=== PATIENT | female | born 1955 | race Caucasian/White ===

== ENCOUNTER → 2016-12-31 | Outpatient (CLI) | payer OTHER ==
[~2016-12-31] MED LIST: ACET-1600 PO; ALBU8.5H5 INH; AMLO10TA4 PO; ASCO500T8 PO; BENA40TA55 PO; CALC-60 PO; CETI10TA24 PO; CHOL20002 PO; DOCU-30 PO; DOXE25CA PO; DOXE50CA PO; DULO30CA2 PO; FISH OIL OMEGA1 EACH PO; FLUO20TA25 PO; FURO20TA3 PO; GABA100C8 PO; GLUC500T8 PO; HYDR-3307 PO; MOME13HF3 INH; MOME220A2 INH; MOME220A9 INH; MONT10TA6 PO; NAPR220T77 PO; OXYC5CAP4 PO; PIOG15TA9 PO; PIOG30TA8 PO; RIVA10TA PO; ROSU10TA PO; ROSU5TAB PO; SALM50DI INH; SPIR25TA3 PO; SUVO10TA PO; TEMA15CA PO; TRAZ100T15 PO
[2016-12-31 13:35] LABS: ASPARTATE AMINO TRANSFERASE 17 U/L (15-37); BLOOD UREA NITROGEN 12 mg/dL (7-18)
== END | disposition home or self-care (01) ==
LOC: STAR 10:22
PROVIDERS: ATTEND Internal Medicine Gastroenterology
DX: Z01.818 Encounter for other preprocedural examination (principal); Z12.11 Encounter for screening for malignant neoplasm of colon
CPT/HCPCS: 36415; 80053; 93005

== ENCOUNTER 2017-01-14 05:59 | Day surgery (SDC) | payer OTHER ==
[~2017-01-14] VITALS: Ht 157.5 cm; Wt 143.0 kg
[~2017-01-14 05:59] MED LIST changes: +FUROSEMIDE 20 MG/2 ML ONE; +GABA-826 PO; -GABA100C8 PO
[2017-01-14] MEDS ORDERED: LACTATED RINGERS 1,000 ML IV SCH (06:55)
[2017-01-14 06:56] VITALS: BP 106/80
[2017-01-14] MEDS ORDERED: LIDOCAINE 1%, 2ML SQ PRN (07:00)
[2017-01-14] MEDS ORDERED: TRAM50TA2 PO (07:03)
[2017-01-14] MEDS ORDERED: FENTANYL PF 100 MCG/2ML IV PRN (08:30)
[2017-01-14] MEDS ORDERED: LABETALOL 5MG/ML, 20ML IV PRN (08:30)
[2017-01-14] MEDS ORDERED: ACETAMINOPHEN 325 MG TABLET PO PRN (08:30)
[2017-01-14] MEDS ORDERED: OXYcodone 5 MG/5 ML ORAL.SOL UDC PO PRN (08:30)
[2017-01-14] MEDS ORDERED: hydrALAzine 20 MG/ML, 1ML IV PRN (08:30)
[2017-01-14] MEDS ORDERED: HYDROcodone/APAP 7.5-325MG/15ML UDC PO PRN (08:30)
[2017-01-14] MEDS ORDERED: EPHEDRINE 50 MG/ML, 1ML IVPush PRN (08:30)
[2017-01-14] MEDS ORDERED: PROMETHAZINE 25 MG/ML, 1ML IV PRN (08:30)
[2017-01-14] MEDS ORDERED: KETOROLAC 30 MG/1 ML IV PRN (08:30)
[2017-01-14] MEDS ORDERED: ONDANSETRON 2MG/ML, 2ML IVPush PRN (08:30)
[2017-01-14] MEDS ORDERED: PROPOFOL 10 MG/ML, 20ML ONE (11:04)
== END 2017-01-14 10:15 | disposition home or self-care (01) ==
LOC: OUT 05:59
PROVIDERS: ATTEND Internal Medicine Gastroenterology
DX: Z12.11 Encounter for screening for malignant neoplasm of colon (principal); D12.4 Benign neoplasm of descending colon; K57.30 Diverticulosis of large intestine without perforation or abscess without bleeding; I10 Essential (primary) hypertension; J45.909 Unspecified asthma, uncomplicated; E11.9 Type 2 diabetes mellitus without complications; G47.33 Obstructive sleep apnea (adult) (pediatric); G43.909 Migraine, unspecified, not intractable, without status migrainosus; E66.01 Morbid (severe) obesity due to excess calories; Z68.43 Body mass index [BMI] 50.0-59.9, adult; Z88.6 Allergy status to analgesic agent; Z88.8 Allergy status to other drugs, medicaments and biological substances; Z91.048 Other nonmedicinal substance allergy status; Z86.010 Personal history of colon polyps; K58.9 Irritable bowel syndrome, unspecified; Z98.890 Other specified postprocedural states; Z96.651 Presence of right artificial knee joint; J98.4 Other disorders of lung; Z83.71 Family history of colonic polyps
CPT/HCPCS: 45385; 82962; 88305; J2704; J7120; J1940

== ENCOUNTER 2018-02-04 17:54 | Inpatient (IN) | payer OTHER ==
[~2018-02-04] VITALS: Ht 157.5 cm; Wt 155.6 kg
[~2018-02-04 17:54] MED LIST changes: +CHOL500045 PO; +DOCU-131 PO; -DOCU-30 PO; -FUROSEMIDE 20 MG/2 ML ONE; +GABA100C PO; +GLUC500T11 PO; -GLUC500T8 PO; +LIOT50TA2 PO; +MOME220A PO; +MULT-516 PO; +OXYC5CAP2 PO; -OXYC5CAP4 PO; +PIOG15TA22 PO; -PIOG15TA9 PO; +PIOG30TA23 PO; -PIOG30TA8 PO; +SALM50DI PO; +TIZA4TAB PO; +TRAM50TA2 PO
[2018-02-04] MEDS ORDERED: VANCOMYCIN PER PHARMACY MC PRN ×2 (19:30→21:30)
[2018-02-04] MEDS ORDERED: VANCOMYCIN 2,500 MG in SODIUM CHLORIDE 0.9% 500 ML IV ONE (19:30)
[2018-02-04] MEDS ORDERED: CEFTRIAXONE PMX 1GM/50ML 50 ML IV ONE (19:30)
[2018-02-04] MEDS ORDERED: CEFTRIAXONE PMX 1GM/50ML 50 ML ONE (19:39)
[2018-02-04 20:47] VITALS: BP 139/84
[2018-02-04] MEDS ORDERED: SODIUM CHLORIDE 0.9% 1,000 ML IV SCH (21:04)
[2018-02-04] MEDS ORDERED: ALBUTEROL SULFATE 2.5 MG/3 ML NPPB PRN (21:30)
[2018-02-04] MEDS ORDERED: POLYETHYLENE GLYCOL 17 GM PACKET PO PRN (21:30)
[2018-02-04] MEDS ORDERED: ONDANSETRON ODT 4 MG PO PRN (21:30)
[2018-02-04] MEDS ORDERED: morphine SULFATE 10 MG/ML, 1ML IVPush PRN (21:30)
[2018-02-04] MEDS ORDERED: LABETALOL 5MG/ML, 20ML IVPush PRN (21:30)
[2018-02-04] MEDS ORDERED: ONDANSETRON 2MG/ML, 2ML IVPush PRN (21:30)
[2018-02-04] MEDS ORDERED: PROMETHAZINE 25 MG/ML, 1ML IM PRN (21:30)
[2018-02-04] MEDS ORDERED: MOMETASONE FUROATE INH SCH ×2 (21:30→23:18)
[2018-02-04] MEDS ORDERED: BISACODYL 10 MG SUPP PR PRN (21:30)
[2018-02-04] MEDS ORDERED: OXYcodone IR 5MG TABLET PO PRN (21:30)
[2018-02-04] MEDS ORDERED: ACETAMINOPHEN 325 MG TABLET PO PRN (21:30)
[2018-02-04] MEDS ORDERED: DOCUSATE 100 MG CAPSULE PO PRN (21:30)
[2018-02-04 21:44] LABS: HEMOGLOBIN A1C 6.2 % (4.2-6.3)
[2018-02-04 21:45] LABS: FREE T4 (FREE THYROXINE) 0.46 ng/dL (0.76-1.46); THYROID STIMULATING HORMONE 0.763 mIU/L (0.358-3.740)
[2018-02-04 21:46] LABS: HCT (SEDRATE) 40.6 % (34.6-47.8)
[2018-02-04] MEDS ORDERED: PHARMACOKINETIC MONITORING MC PRN (22:00)
[2018-02-04] MEDS ORDERED: PHARMACOKINETIC CONSULTATION MC ONE (22:00)
[2018-02-04] MEDS: PIPERACILLIN/TAZO/PMX 3.375GM 50 ML IV SCH (22:30)
[2018-02-04] MEDS: HYDROcodone/APAP 5/325 TABLET PO PRN ×2 (22:31→23:33)
[2018-02-04] MEDS: MONTELUKAST 10 MG TABLET PO SCH (22:31)
[2018-02-04] MEDS: ATORVASTATIN 10 MG TABLET PO SCH (22:31)
[2018-02-04] MEDS: GABAPENTIN 100 MG CAPSULE PO SCH (22:31)
[2018-02-04] MEDS: HEPARIN 5,000 UNITS/ML, 1ML SQ SCH (22:32)
[2018-02-04] MEDS: SALMETEROL XINAFOATE 50 MCG INH SCH (23:32)
[2018-02-04] MEDS: VANCOMYCIN 2,500 MG in SODIUM CHLORIDE 0.9% 500 ML IV SCH (23:33)
[2018-02-05 01:30] VITALS: BP 144/79
[2018-02-05] MEDS: HYDROcodone/APAP 5/325 TABLET PO PRN ×5 (03:53→20:30)
[2018-02-05] MEDS: PIPERACILLIN/TAZO/PMX 3.375GM 50 ML IV SCH ×3 (03:54→17:57)
[2018-02-05 05:15] LABS: ALBUMIN 2.3 g/dL (3.4-5.0); ANION GAP 8 mmol/L (5-15); CALCIUM 9.6 mg/dL (8.5-10.1); CHLORIDE 107 mmol/L (98-107)
[2018-02-05 05:18] LABS: ALANINE AMINOTRANSFERASE 36 U/L (12-78); ALKALINE PHOSPHATASE 153 U/L (45-117); CHOL/HDL RATIO 2.3; CHOLESTEROL, TOTAL 110 mg/dL (140-239); CREATININE 0.77 mg/dL (0.55-1.02); HDL CHOL % 44 % (28-40); HDL CHOLESTEROL (DIRECT) 48 mg/dL (40-60); LDL CHOLESTEROL,CALCULATED 48 mg/dL (54-169); TOTAL PROTEIN 5.8 g/dL (6.4-8.2); TRIGLYCERIDES 72 mg/dL (50-200); VLDL CHOLESTEROL 14 mg/dL (0-25)
[2018-02-05 05:24] LABS: BASOPHILS # (AUTO) 0.02 x10^3/uL (0-0.1); BASOPHILS % (AUTO) 0 % (0-1); EOSINOPHILS % (AUTO) 0 % (1-7); LYMPHOCYTES # (AUTO) 1.71 x10^3/uL (1-3.4); LYMPHOCYTES % (AUTO) 18 % (22-44); MD NO; MEAN CORPUSCULAR HEMOGLOBIN 29.2 pg (27.0-34.8); MEAN CORPUSCULAR HGB CONC 33.2 g/dL (32.4-35.8); MEAN CORPUSCULAR VOLUME 88.1 fL (80-100); MEAN PLATELET VOLUME 7.3 fL (7.4-10.4); MONOCYTES % (AUTO) 13 % (2-9); NEUTROPHILS # (AUTO) 6.54 x10^3/uL (1.8-6.8); NEUTROPHILS % (AUTO) 69 % (42-75); PLATELET COUNT 305 x10^3/uL (130-400); RED BLOOD COUNT 4.15 x10^6/uL (3.82-5.3); RED CELL DISTRIBUTION WIDTH 13.5 % (9.6-15.2)
[2018-02-05] MEDS: HEPARIN 5,000 UNITS/ML, 1ML SQ SCH ×3 (06:33→22:56)
[2018-02-05 06:45] VITALS: BP 135/88
[2018-02-05] MEDS: INSULIN LISPRO 100 UNITS/ML, PEN SQ-INSULIN SCH ×4 (07:00→21:00)
[2018-02-05] MEDS: ASCORBIC ACID 500 MG TABLET PO SCH ×2 (08:31→08:33)
[2018-02-05] MEDS: OMEGA-3/FISH OIL CAPSULE PO SCH (08:31)
[2018-02-05] MEDS: AMLODIPINE 5 MG TABLET PO SCH (08:33)
[2018-02-05] MEDS: MULTIVITAMIN 1 TABLET PO SCH (08:33)
[2018-02-05] MEDS: LIOTHYRONINE 25 MCG TABLET PO SCH (08:33)
[2018-02-05] MEDS: CHOLECALCIFEROL 1,000 UNIT TABLET PO SCH (08:34)
[2018-02-05] MEDS: SALMETEROL XINAFOATE 50 MCG INH SCH ×2 (08:34→20:32)
[2018-02-05] MEDS: BENAZEPRIL 20 MG TABLET PO SCH (08:34)
[2018-02-05 13:10] VITALS: BP 115/70
[2018-02-05] MEDS: VANCOMYCIN 2,500 MG in SODIUM CHLORIDE 0.9% 500 ML IV SCH (16:25)
[2018-02-05 18:37] VITALS: BP 132/80
[2018-02-05] MEDS: ATORVASTATIN 10 MG TABLET PO SCH (20:29)
[2018-02-05] MEDS: MONTELUKAST 10 MG TABLET PO SCH (20:31)
[2018-02-05] MEDS: MOMETASONE FUROATE INH SCH (20:33)
[2018-02-05] MEDS: GABAPENTIN 100 MG CAPSULE PO SCH (22:34)
[2018-02-05] MEDS: CETIRIZINE 10 MG TABLET PO SCH (22:34)
[2018-02-06 00:14] VITALS: BP 134/83
[2018-02-06] MEDS: TIZANIDINE 4MG TABLET PO SCH (00:34)
[2018-02-06] MEDS: HYDROcodone/APAP 5/325 TABLET PO PRN ×3 (00:34→08:50)
[2018-02-06] MEDS: PIPERACILLIN/TAZO/PMX 3.375GM 50 ML IV SCH ×5 (00:34→22:08)
[2018-02-06 05:03] LABS: BASOPHILS # (AUTO) 0.01 x10^3/uL (0-0.1); BASOPHILS % (AUTO) 0 % (0-1); EOSINOPHILS # (AUTO) 0.02 x10^3/uL (0-0.4); EOSINOPHILS % (AUTO) 0 % (1-7); LYMPHOCYTES # (AUTO) 1.75 x10^3/uL (1-3.4); LYMPHOCYTES % (AUTO) 19 % (22-44); MD NO; MEAN CORPUSCULAR HEMOGLOBIN 29.4 pg (27.0-34.8); MEAN CORPUSCULAR HGB CONC 33.2 g/dL (32.4-35.8); MEAN CORPUSCULAR VOLUME 88.5 fL (80-100); MEAN PLATELET VOLUME 7.3 fL (7.4-10.4); MONOCYTES # (AUTO) 0.87 x10^3/uL (0.2-0.8); MONOCYTES % (AUTO) 9 % (2-9); NEUTROPHILS # (AUTO) 6.65 x10^3/uL (1.8-6.8); NEUTROPHILS % (AUTO) 72 % (42-75); PLATELET COUNT 295 x10^3/uL (130-400); RED BLOOD COUNT 3.92 x10^6/uL (3.82-5.3); RED CELL DISTRIBUTION WIDTH 13.6 % (9.6-15.2)
[2018-02-06 05:09] LABS: ALBUMIN 2.1 g/dL (3.4-5.0); ANION GAP 4 mmol/L (5-15); CALCIUM 9.5 mg/dL (8.5-10.1); CHLORIDE 109 mmol/L (98-107)
[2018-02-06 05:12] LABS: ALANINE AMINOTRANSFERASE 53 U/L (12-78); ALKALINE PHOSPHATASE 161 U/L (45-117); BILIRUBIN,TOTAL 0.7 mg/dL (0.2-1.0); CREATININE 0.98 mg/dL (0.55-1.02); TOTAL PROTEIN 5.6 g/dL (6.4-8.2)
[2018-02-06] MEDS: HEPARIN 5,000 UNITS/ML, 1ML SQ SCH ×2 (06:22→12:03)
[2018-02-06] MEDS: INSULIN LISPRO 100 UNITS/ML, PEN SQ-INSULIN SCH ×4 (07:00→21:00)
[2018-02-06 08:47] VITALS: BP 109/67
[2018-02-06] MEDS: MULTIVITAMIN 1 TABLET PO SCH (08:49)
[2018-02-06] MEDS: BENAZEPRIL 20 MG TABLET PO SCH (08:49)
[2018-02-06] MEDS: CHOLECALCIFEROL 1,000 UNIT TABLET PO SCH (08:49)
[2018-02-06] MEDS: OMEGA-3/FISH OIL CAPSULE PO SCH (08:50)
[2018-02-06] MEDS: ASCORBIC ACID 500 MG TABLET PO SCH ×2 (08:50)
[2018-02-06] MEDS: AMLODIPINE 5 MG TABLET PO SCH (08:50)
[2018-02-06] MEDS: SALMETEROL XINAFOATE 50 MCG INH SCH ×2 (08:51→21:00)
[2018-02-06] MEDS: LIOTHYRONINE 25 MCG TABLET PO SCH (08:52)
[2018-02-06] MEDS: VANCOMYCIN 2,500 MG in SODIUM CHLORIDE 0.9% 500 ML IV SCH (10:32)
[2018-02-06 12:54] VITALS: BP 142/83
[2018-02-06] MEDS ORDERED: VANCOMYCIN 1,000 MG ONE (15:45)
[2018-02-06] MEDS ORDERED: TRANEXAMIC ACID 100 MG/ML, 10ML ONE ×3 (16:10)
[2018-02-06] MEDS ORDERED: SODIUM CHLORIDE 0.9% 100 ML ONE (16:10)
[2018-02-06] MEDS ORDERED: KETOROLAC 60 MG/2 ML ONE (16:10)
[2018-02-06] MEDS ORDERED: ROPIvacaine/PF 0.2%, 20 ML ONE (16:10)
[2018-02-06] MEDS ORDERED: PHENYLEPHRINE 10 MG/ML ONE (16:19)
[2018-02-06] MEDS ORDERED: CEFAZOLIN 1,000 MG ONE (16:19)
[2018-02-06] MEDS ORDERED: KETOROLAC 30 MG/1 ML ONE (16:19)
[2018-02-06] MEDS ORDERED: DEXAMETHASONE 4 MG/ML, 1ML ONE (16:19)
[2018-02-06] MEDS ORDERED: GLYCOPYRROLATE 0.2MG/1ML, 5ML ONE (16:19)
[2018-02-06] MEDS ORDERED: PROPOFOL 10 MG/ML, 20ML ONE (16:19)
[2018-02-06] MEDS ORDERED: METOPROLOL 1 MG/ML, 5ML ONE (16:19)
[2018-02-06] MEDS ORDERED: ONDANSETRON 2MG/ML, 2ML ONE (16:19)
[2018-02-06] MEDS ORDERED: NEOSTIGMINE 1 MG/ML, 10ML ONE (16:19)
[2018-02-06] MEDS ORDERED: ROCURONIUM 10 MG/ML,10ML ONE (16:19)
[2018-02-06] MEDS ORDERED: HALOPERIDOL 5 MG/ML IV PRN (17:00)
[2018-02-06] MEDS ORDERED: PROMETHAZINE 12.5 MG SUPP PR PRN ×2 (17:00→20:00)
[2018-02-06] MEDS ORDERED: ENALAPRILAT 1.25 MG/ML, 2ML IV ONE (17:00)
[2018-02-06] MEDS ORDERED: OXYcodone 5 MG/5 ML ORAL.SOL UDC PO PRN (17:00)
[2018-02-06] MEDS ORDERED: MEPERIDINE/PF 25MG/0.5ML IVPush PRN (17:00)
[2018-02-06] MEDS ORDERED: ONDANSETRON 2MG/ML, 2ML IV PRN ×2 (17:00→20:00)
[2018-02-06] MEDS ORDERED: LORazepam 2 MG/ML, 1ML IVPush PRN (17:00)
[2018-02-06] MEDS ORDERED: ALBUTEROL SULFATE 2.5 MG/3 ML NPPB PRN (17:00)
[2018-02-06] MEDS ORDERED: ACETAMINOPHEN 325 MG TABLET PO PRN (17:00)
[2018-02-06] MEDS ORDERED: FENTANYL PF 100 MCG/2ML ONE (19:56)
[2018-02-06] MEDS ORDERED: OXYcodone 5 MG/5 ML ORAL.SOL UDC ONE (19:56)
[2018-02-06] MEDS ORDERED: HYDROmorphone 1 MG/ML, 1ML IV PRN (20:00)
[2018-02-06] MEDS ORDERED: DIAZEPAM 5 MG TABLET PO PRN (20:00)
[2018-02-06] MEDS ORDERED: ONDANSETRON 4 MG TABLET PO PRN (20:00)
[2018-02-06] MEDS: HYDROcodone/APAP 10/325 MG TABLET PO SCH (20:00)
[2018-02-06] MEDS ORDERED: PROMETHAZINE 25 MG/ML, 1ML IM PRN (20:00)
[2018-02-06] MEDS ORDERED: BISACODYL 10 MG SUPP PR PRN (20:00)
[2018-02-06] MEDS ORDERED: ALUMINUM/MAG/SIMETHICONE 30 ML UDC PO PRN (20:00)
[2018-02-06] MEDS ORDERED: SENNA/DOCUSATE TABLET PO PRN (20:00)
[2018-02-06] MEDS ORDERED: DIPHENHYDRAMINE 50 MG CAPSULE PO PRN (20:00)
[2018-02-06] MEDS ORDERED: MAGNESIUM HYDROXIDE 8%, 30ML UDC PO PRN (20:00)
[2018-02-06] MEDS ORDERED: ACETAMINOPHEN 650 MG/20.3 ML UDC PO PRN (20:00)
[2018-02-06] MEDS: FENTANYL PF 100 MCG/2ML IV PRN ×2 (20:02→20:10)
[2018-02-06] MEDS ORDERED: TRANEXAMIC ACID 2,000 MG in SODIUM CHLORIDE 0.9% 100 ML IVPB ONE (20:15)
[2018-02-06] MEDS: HYDROmorphone 1 MG/ML, 1ML IV PRN ×4 (20:20→21:03)
[2018-02-06] MEDS ORDERED: MORPHINE SULFATE 4 MG/ML, 1ML IVPush PRN (20:30)
[2018-02-06] MEDS: MONTELUKAST 10 MG TABLET PO SCH (21:00)
[2018-02-06] MEDS: DOCUSATE 100 MG CAPSULE PO SCH (21:00)
[2018-02-06] MEDS: CETIRIZINE 10 MG TABLET PO SCH (21:00)
[2018-02-06] MEDS: ATORVASTATIN 10 MG TABLET PO SCH (21:00)
[2018-02-06] MEDS: INSULIN REGULAR 100 UNITS/ML, 3ML VIAL SQ-INSULIN SCH (21:00)
[2018-02-06] MEDS: MOMETASONE FUROATE INH SCH (21:00)
[2018-02-06 22:00] VITALS: BP 124/69
[2018-02-06] MEDS ORDERED: VANCOMYCIN PMX 1GM/200ML 200 ML IVPB SCH (23:00)
[2018-02-07] MEDS: GABAPENTIN 100 MG CAPSULE PO SCH ×2 (00:05→21:00)
[2018-02-07] MEDS: TIZANIDINE 4MG TABLET PO SCH ×2 (00:05→21:10)
[2018-02-07 00:13] VITALS: BP 116/73
[2018-02-07] MEDS: HYDROcodone/APAP 5/325 TABLET PO PRN (00:52)
[2018-02-07] MEDS: CEFAZOLIN PMX 2GM/50ML 50 ML IVPB SCH ×3 (00:52→17:51)
[2018-02-07] MEDS: SODIUM CHLORIDE 0.9% 1,000 ML IV SCH ×3 (03:00→21:34)
[2018-02-07 03:50] VITALS: BP 123/59
[2018-02-07] MEDS: VANCOMYCIN 2,500 MG in SODIUM CHLORIDE 0.9% 500 ML IV SCH (04:06)
[2018-02-07] MEDS: RIVAROXABAN 10 MG TABLET PO SCH ×2 (04:36→08:49)
[2018-02-07] MEDS: HYDROcodone/APAP 10/325 MG TABLET PO SCH ×4 (05:16→12:42)
[2018-02-07] MEDS ORDERED: DEXAMETHASONE 4 MG/ML, 1ML IVPush SCH (06:00)
[2018-02-07] MEDS: PIPERACILLIN/TAZO/PMX 3.375GM 50 ML IV SCH ×2 (06:25→08:45)
[2018-02-07] MEDS: INSULIN LISPRO 100 UNITS/ML, PEN SQ-INSULIN SCH ×4 (07:00→21:33)
[2018-02-07] MEDS: INSULIN REGULAR 100 UNITS/ML, 3ML VIAL SQ-INSULIN SCH ×2 (07:00→11:00)
[2018-02-07 08:21] VITALS: BP 96/51
[2018-02-07] MEDS: CHOLECALCIFEROL 1,000 UNIT TABLET PO SCH (08:49)
[2018-02-07] MEDS: OMEGA-3/FISH OIL CAPSULE PO SCH ×2 (08:49→21:11)
[2018-02-07] MEDS: LIOTHYRONINE 25 MCG TABLET PO SCH (08:50)
[2018-02-07] MEDS: MULTIVITAMIN 1 TABLET PO SCH (08:50)
[2018-02-07] MEDS: MULTIVITAMINS/MINERALS TABLET PO SCH (08:50)
[2018-02-07] MEDS: DOCUSATE 100 MG CAPSULE PO SCH ×2 (08:51→21:10)
[2018-02-07] MEDS: BENAZEPRIL 20 MG TABLET PO SCH (08:52)
[2018-02-07] MEDS: ASCORBIC ACID 500 MG TABLET PO SCH ×2 (08:52→09:00)
[2018-02-07] MEDS: AMLODIPINE 5 MG TABLET PO SCH (08:52)
[2018-02-07] MEDS: HEPARIN 5,000 UNITS/ML, 1ML SQ SCH (09:00)
[2018-02-07] MEDS: SALMETEROL XINAFOATE 50 MCG INH SCH ×2 (09:11→21:00)
[2018-02-07 10:50] LABS: HCT (SEDRATE) 31.7 % (34.6-47.8)
[2018-02-07 12:35] VITALS: BP 100/53
[2018-02-07] MEDS ORDERED: LIDOCAINE-MPF 1%, 2ML ONE (13:40)
[2018-02-07] MEDS: HYDROcodone/APAP 10/325 MG TABLET PO PRN ×2 (17:24→21:09)
[2018-02-07 20:04] VITALS: BP 112/71
[2018-02-07] MEDS: MOMETASONE FUROATE INH SCH (21:00)
[2018-02-07] MEDS: KETOROLAC 30 MG/1 ML IV SCH (21:10)
[2018-02-07] MEDS: ATORVASTATIN 10 MG TABLET PO SCH (21:11)
[2018-02-07] MEDS: CETIRIZINE 10 MG TABLET PO SCH (21:11)
[2018-02-07] MEDS: MONTELUKAST 10 MG TABLET PO SCH (21:13)
[2018-02-08] MEDS: CEFAZOLIN PMX 2GM/50ML 50 ML IVPB SCH ×3 (01:52→16:44)
[2018-02-08 03:09] VITALS: BP 101/66
[2018-02-08] MEDS: SODIUM CHLORIDE 0.9% 1,000 ML IV SCH ×3 (04:35→22:34)
[2018-02-08] MEDS: KETOROLAC 30 MG/1 ML IV SCH ×2 (04:46→12:00)
[2018-02-08] MEDS: HYDROcodone/APAP 10/325 MG TABLET PO PRN ×5 (04:46→22:33)
[2018-02-08 05:49] LABS: BASOPHILS # (AUTO) 0.04 x10^3/uL (0-0.1); BASOPHILS % (AUTO) 0 % (0-1); EOSINOPHILS % (AUTO) 0 % (1-7); LYMPHOCYTES # (AUTO) 1.91 x10^3/uL (1-3.4); LYMPHOCYTES % (AUTO) 14 % (22-44); MD NO; MEAN CORPUSCULAR HEMOGLOBIN 29.1 pg (27.0-34.8); MEAN CORPUSCULAR HGB CONC 33.4 g/dL (32.4-35.8); MEAN CORPUSCULAR VOLUME 87.1 fL (80-100); MONOCYTES # (AUTO) 1.04 x10^3/uL (0.2-0.8); MONOCYTES % (AUTO) 7 % (2-9); NEUTROPHILS # (AUTO) 10.98 x10^3/uL (1.8-6.8); NEUTROPHILS % (AUTO) 79 % (42-75); PLATELET COUNT 356 x10^3/uL (130-400); RED BLOOD COUNT 3.07 x10^6/uL (3.82-5.3); RED CELL DISTRIBUTION WIDTH 13.4 % (9.6-15.2)
[2018-02-08 05:57] LABS: ALANINE AMINOTRANSFERASE 17 U/L (12-78); ALBUMIN 1.9 g/dL (3.4-5.0); ANION GAP 6 mmol/L (5-15); CALCIUM 9.7 mg/dL (8.5-10.1); CHLORIDE 106 mmol/L (98-107)
[2018-02-08 05:59] LABS: ALKALINE PHOSPHATASE 119 U/L (45-117); BILIRUBIN,TOTAL 0.2 mg/dL (0.2-1.0); TOTAL PROTEIN 5.1 g/dL (6.4-8.2)
[2018-02-08] MEDS: INSULIN LISPRO 100 UNITS/ML, PEN SQ-INSULIN SCH ×4 (07:00→22:00)
[2018-02-08 07:54] VITALS: BP 99/65
[2018-02-08] MEDS: AMLODIPINE 5 MG TABLET PO SCH (09:00)
[2018-02-08] MEDS: BENAZEPRIL 20 MG TABLET PO SCH (09:00)
[2018-02-08] MEDS: DOCUSATE 100 MG CAPSULE PO SCH ×2 (10:02→22:20)
[2018-02-08] MEDS: CHOLECALCIFEROL 1,000 UNIT TABLET PO SCH (10:02)
[2018-02-08] MEDS: ASCORBIC ACID 500 MG TABLET PO SCH (10:03)
[2018-02-08] MEDS: OMEGA-3/FISH OIL CAPSULE PO SCH ×2 (10:03→22:21)
[2018-02-08] MEDS: RIVAROXABAN 10 MG TABLET PO SCH (10:03)
[2018-02-08] MEDS: LIOTHYRONINE 25 MCG TABLET PO SCH (10:03)
[2018-02-08] MEDS: MULTIVITAMINS/MINERALS TABLET PO SCH (10:04)
[2018-02-08] MEDS: SALMETEROL XINAFOATE 50 MCG INH SCH ×2 (10:04→22:19)
[2018-02-08 13:05] VITALS: BP 109/64
[2018-02-08 19:33] VITALS: BP 112/73
[2018-02-08] MEDS: MOMETASONE FUROATE INH SCH (22:18)
[2018-02-08] MEDS: GABAPENTIN 100 MG CAPSULE PO SCH (22:20)
[2018-02-08] MEDS: ATORVASTATIN 10 MG TABLET PO SCH (22:21)
[2018-02-08] MEDS: CETIRIZINE 10 MG TABLET PO SCH (22:21)
[2018-02-08] MEDS: MONTELUKAST 10 MG TABLET PO SCH (22:21)
[2018-02-09] MEDS: TIZANIDINE 4MG TABLET PO SCH (00:55)
[2018-02-09] MEDS: CEFAZOLIN PMX 2GM/50ML 50 ML IVPB SCH ×3 (00:55→16:06)
[2018-02-09 02:50] VITALS: BP 117/64
[2018-02-09] MEDS: HYDROcodone/APAP 10/325 MG TABLET PO PRN ×4 (02:54→20:41)
[2018-02-09] MEDS: SODIUM CHLORIDE 0.9% 1,000 ML IV SCH ×3 (05:45→22:00)
[2018-02-09 06:09] LABS: BASOPHILS # (AUTO) 0.15 x10^3/uL (0-0.1); BASOPHILS % (AUTO) 1 % (0-1); EOSINOPHILS # (AUTO) 0.21 x10^3/uL (0-0.4); EOSINOPHILS % (AUTO) 2 % (1-7); LYMPHOCYTES # (AUTO) 2.96 x10^3/uL (1-3.4); LYMPHOCYTES % (AUTO) 24 % (22-44); MD NO; MEAN CORPUSCULAR HEMOGLOBIN 29.5 pg (27.0-34.8); MEAN CORPUSCULAR HGB CONC 33.7 g/dL (32.4-35.8); MEAN CORPUSCULAR VOLUME 87.5 fL (80-100); MEAN PLATELET VOLUME 6.7 fL (7.4-10.4); MONOCYTES # (AUTO) 1.27 x10^3/uL (0.2-0.8); MONOCYTES % (AUTO) 10 % (2-9); NEUTROPHILS % (AUTO) 64 % (42-75); PLATELET COUNT 423 x10^3/uL (130-400); RED BLOOD COUNT 3.35 x10^6/uL (3.82-5.3); RED CELL DISTRIBUTION WIDTH 13.5 % (9.6-15.2)
[2018-02-09 06:21] LABS: ANION GAP 6 mmol/L (5-15); CALCIUM 9.9 mg/dL (8.5-10.1); CHLORIDE 109 mmol/L (98-107); CREATININE 1.84 mg/dL (0.55-1.02)
[2018-02-09 06:22] LABS: ALANINE AMINOTRANSFERASE 8 U/L (12-78); ALBUMIN 2.1 g/dL (3.4-5.0)
[2018-02-09 06:23] LABS: ALKALINE PHOSPHATASE 122 U/L (45-117); BILIRUBIN,TOTAL 0.3 mg/dL (0.2-1.0); TOTAL PROTEIN 5.6 g/dL (6.4-8.2)
[2018-02-09] MEDS: INSULIN LISPRO 100 UNITS/ML, PEN SQ-INSULIN SCH ×4 (07:00→20:25)
[2018-02-09 07:15] VITALS: BP 139/75
[2018-02-09] MEDS: SALMETEROL XINAFOATE 50 MCG INH SCH ×2 (08:47→20:40)
[2018-02-09] MEDS: MULTIVITAMINS/MINERALS TABLET PO SCH (08:48)
[2018-02-09] MEDS: BENAZEPRIL 20 MG TABLET PO SCH (08:48)
[2018-02-09] MEDS: RIVAROXABAN 10 MG TABLET PO SCH (08:49)
[2018-02-09] MEDS: DOCUSATE 100 MG CAPSULE PO SCH ×3 (08:49→20:41)
[2018-02-09] MEDS: ASCORBIC ACID 500 MG TABLET PO SCH (08:49)
[2018-02-09] MEDS: AMLODIPINE 5 MG TABLET PO SCH (08:49)
[2018-02-09] MEDS: CHOLECALCIFEROL 1,000 UNIT TABLET PO SCH (08:49)
[2018-02-09] MEDS: LIOTHYRONINE 25 MCG TABLET PO SCH (08:50)
[2018-02-09] MEDS: OMEGA-3/FISH OIL CAPSULE PO SCH ×2 (08:55→23:10)
[2018-02-09] MEDS: OXYcodone IR 5MG TABLET PO PRN ×2 (09:49→16:06)
[2018-02-09 12:11] VITALS: BP 144/65
[2018-02-09 19:51] VITALS: BP 156/80
[2018-02-09] MEDS: MOMETASONE FUROATE INH SCH (20:39)
[2018-02-09] MEDS: GABAPENTIN 100 MG CAPSULE PO SCH (20:41)
[2018-02-09] MEDS: ATORVASTATIN 10 MG TABLET PO SCH (20:41)
[2018-02-09] MEDS: MONTELUKAST 10 MG TABLET PO SCH (20:41)
[2018-02-09] MEDS: CETIRIZINE 10 MG TABLET PO SCH (23:10)
[2018-02-10] MEDS: SODIUM CHLORIDE 0.9% 1,000 ML IV SCH ×3 (00:45→14:00)
[2018-02-10] MEDS: TIZANIDINE 4MG TABLET PO SCH (00:45)
[2018-02-10] MEDS: HYDROcodone/APAP 10/325 MG TABLET PO PRN ×4 (00:46→17:11)
[2018-02-10] MEDS: CEFAZOLIN PMX 2GM/50ML 50 ML IVPB SCH ×3 (00:46→15:42)
[2018-02-10 01:05] VITALS: BP 131/79
[2018-02-10 05:01] LABS: BASOPHILS # (AUTO) 0.07 x10^3/uL (0-0.1); BASOPHILS % (AUTO) 1 % (0-1); EOSINOPHILS # (AUTO) 0.29 x10^3/uL (0-0.4); EOSINOPHILS % (AUTO) 3 % (1-7); LYMPHOCYTES # (AUTO) 2.57 x10^3/uL (1-3.4); LYMPHOCYTES % (AUTO) 26 % (22-44); MD NO; MEAN CORPUSCULAR HEMOGLOBIN 29.5 pg (27.0-34.8); MEAN CORPUSCULAR HGB CONC 33.2 g/dL (32.4-35.8); MEAN CORPUSCULAR VOLUME 88.8 fL (80-100); MEAN PLATELET VOLUME 6.6 fL (7.4-10.4); MONOCYTES % (AUTO) 7 % (2-9); NEUTROPHILS # (AUTO) 6.41 x10^3/uL (1.8-6.8); NEUTROPHILS % (AUTO) 64 % (42-75); PLATELET COUNT 361 x10^3/uL (130-400); RED BLOOD COUNT 2.99 x10^6/uL (3.82-5.3); RED CELL DISTRIBUTION WIDTH 13.3 % (9.6-15.2)
[2018-02-10 05:07] LABS: ALANINE AMINOTRANSFERASE 7 U/L (12-78); ALBUMIN 1.9 g/dL (3.4-5.0); ANION GAP 6 mmol/L (5-15); CALCIUM 9.5 mg/dL (8.5-10.1); CHLORIDE 113 mmol/L (98-107); CREATININE 1.63 mg/dL (0.55-1.02)
[2018-02-10 05:10] LABS: ALKALINE PHOSPHATASE 113 U/L (45-117); BILIRUBIN,TOTAL 0.3 mg/dL (0.2-1.0); TOTAL PROTEIN 4.9 g/dL (6.4-8.2)
[2018-02-10] MEDS: INSULIN LISPRO 100 UNITS/ML, PEN SQ-INSULIN SCH ×3 (07:00→15:51)
[2018-02-10 08:00] VITALS: BP 147/81
[2018-02-10] MEDS: CHOLECALCIFEROL 1,000 UNIT TABLET PO SCH (08:01)
[2018-02-10] MEDS: BENAZEPRIL 20 MG TABLET PO SCH (08:03)
[2018-02-10] MEDS: AMLODIPINE 5 MG TABLET PO SCH (08:03)
[2018-02-10] MEDS: ASCORBIC ACID 500 MG TABLET PO SCH (08:04)
[2018-02-10] MEDS: OMEGA-3/FISH OIL CAPSULE PO SCH (08:04)
[2018-02-10] MEDS: LIOTHYRONINE 25 MCG TABLET PO SCH (08:04)
[2018-02-10] MEDS: MULTIVITAMINS/MINERALS TABLET PO SCH (08:04)
[2018-02-10] MEDS: RIVAROXABAN 10 MG TABLET PO SCH (08:04)
[2018-02-10] MEDS: DOCUSATE 100 MG CAPSULE PO SCH (08:04)
[2018-02-10] MEDS: SALMETEROL XINAFOATE 50 MCG INH SCH (08:05)
[2018-02-10] MEDS: HYDROcodone/APAP 5/325 TABLET PO PRN (09:33)
[2018-02-10] MEDS ORDERED: MULT-484 PO (10:45)
[2018-02-10] MEDS ORDERED: CEFA2FRO IV (10:45)
[2018-02-10] MEDS ORDERED: ACET650S21 PO (10:45)
[2018-02-10] MEDS ORDERED: DOCU-131 PO (10:45)
[2018-02-10] MEDS ORDERED: RIVA10TA PO ×2 (10:45→11:05)
[2018-02-10] MEDS ORDERED: OXYC5TAB3 PO (10:45)
[2018-02-10] MEDS ORDERED: ONDA4VIA4 IV (10:45)
[2018-02-10] MEDS ORDERED: MAGN400O7 PO (10:45)
[2018-02-10] MEDS ORDERED: MORP10VI10 IVPush (10:45)
[2018-02-10] MEDS ORDERED: SENN1TAB7 PO (10:45)
[2018-02-10] MEDS ORDERED: POLY17PO5 PO (10:45)
[2018-02-10] MEDS ORDERED: ONDA4TAB12 PO (10:45)
[2018-02-10] MEDS ORDERED: ALPR0.254 PO (10:45)
[2018-02-10] MEDS ORDERED: OMEG1CAP6 PO (10:45)
[2018-02-10] MEDS ORDERED: BISA10SU65 PR (10:45)
[2018-02-10 14:30] VITALS: BP 144/74
== END 2018-02-10 17:10 | DRG 463 ==
LOC: ED 19:46 → EDIP 19:54 → 4NOR 20:40
PROVIDERS: ADMIT Internal Medicine; ATTEND Internal Medicine
PROC: 5A09357 Assistance with Respiratory Ventilation, Less than 24 Consecutive Hours, Continuous Positive Airway Pressure (ICD-10-PCS; 2018-02-05)
PROC: 0SHC08Z Insertion of Spacer into Right Knee Joint, Open Approach (ICD-10-PCS; 2018-02-06)
PROC: 0SPC0JZ Removal of Synthetic Substitute from Right Knee Joint, Open Approach (ICD-10-PCS; principal; 2018-02-06 16:00)
PROC: 02HV33Z Insertion of Infusion Device into Superior Vena Cava, Percutaneous Approach (ICD-10-PCS; 2018-02-07)
PROC: B548ZZA Ultrasonography of Superior Vena Cava, Guidance (ICD-10-PCS; 2018-02-07)
PROC: 5A09357 Assistance with Respiratory Ventilation, Less than 24 Consecutive Hours, Continuous Positive Airway Pressure (ICD-10-PCS; 2018-02-08)
PROC: 5A09357 Assistance with Respiratory Ventilation, Less than 24 Consecutive Hours, Continuous Positive Airway Pressure (ICD-10-PCS; 2018-02-09)
DX: T84.53XA Infection and inflammatory reaction due to internal right knee prosthesis, initial encounter (principal); A41.9 Sepsis, unspecified organism; E43 Unspecified severe protein-calorie malnutrition; N17.0 Acute kidney failure with tubular necrosis; S82.201A Unspecified fracture of shaft of right tibia, initial encounter for closed fracture; M00.9 Pyogenic arthritis, unspecified; N39.0 Urinary tract infection, site not specified; Z68.44 Body mass index [BMI] 60.0-69.9, adult; D62 Acute posthemorrhagic anemia; T84.54XA Infection and inflammatory reaction due to internal left knee prosthesis, initial encounter; E66.01 Morbid (severe) obesity due to excess calories; Z96.651 Presence of right artificial knee joint; B95.5 Unspecified streptococcus as the cause of diseases classified elsewhere; B95.61 Methicillin susceptible Staphylococcus aureus infection as the cause of diseases classified elsewhere; E03.9 Hypothyroidism, unspecified; E11.9 Type 2 diabetes mellitus without complications; E78.5 Hyperlipidemia, unspecified; E83.52 Hypercalcemia; G47.33 Obstructive sleep apnea (adult) (pediatric); G89.29 Other chronic pain; I10 Essential (primary) hypertension; Y83.1 Surgical operation with implant of artificial internal device as the cause of abnormal reaction of the patient, or of later complication, without mention of misadventure at the time of the procedure; W18.39XA Other fall on same level, initial encounter; J45.909 Unspecified asthma, uncomplicated; K57.90 Diverticulosis of intestine, part unspecified, without perforation or abscess without bleeding; M85.80 Other specified disorders of bone density and structure, unspecified site; Z82.49 Family history of ischemic heart disease and other diseases of the circulatory system; Z83.3 Family history of diabetes mellitus; Z88.8 Allergy status to other drugs, medicaments and biological substances; Z91.048 Other nonmedicinal substance allergy status; Z91.09 Other allergy status, other than to drugs and biological substances; Z90.89 Acquired absence of other organs; Y93.89 Activity, other specified; Y92.098 Other place in other non-institutional residence as the place of occurrence of the external cause; Y99.8 Other external cause status
CPT/HCPCS: 36415; 73560; 73590; 77001; 84145; 87806; 99285; J3490; 36569; 71045; 71046; 76937; 80053; 80061; 81001; 82962; 83036; 83605; 83735; 84100; 84439; 84443; 85014; 85018; 85025; 85610; 85651; 85730; 86140; 87040; 87070; 87075; 87077; 87081; 87086; 87102; 87147; 87176; 87186; 87205; 93005; C1713; J0171; J0690; J1100; J1170; J1644; J1815; J1885; J2250; J2405; J2543; J2704; J2710; J2795; J3010; J3370; C1751; C1776; G0475; J2370; J7030; J7040

== ENCOUNTER 2018-04-18 11:00 | Inpatient (IN) | payer OTHER ==
[~2018-04-18] VITALS: Ht 157.5 cm; Wt 178.0 kg
[~2018-04-18 11:00] MED LIST changes: +ACET650S21 PO; +ALPR0.254 PO; +BISA10SU65 PR; +CEFA2FRO IV; -CHOL20002 PO; +CHOL200052 PO; +MAGN400O7 PO; +MORP10VI10 IVPush; +MULT-484 PO; +OMEG1CAP6 PO; +ONDA4TAB12 PO; +ONDA4VIA8 IV; +OXYC5TAB3 PO; +POLY17PO5 PO; +SENN1TAB8 PO; -SPIR25TA3 PO; +SPIR25TA5 PO; +TRAZ-137 PO; -TRAZ100T15 PO
[2018-04-18] MEDS ORDERED: ACETAMINOPHEN 325 MG TABLET PO PRN (14:00)
[2018-04-18] MEDS ORDERED: HEPARIN 5,000 UNITS/ML, 1ML SQ SCH (14:00)
[2018-04-18] MEDS ORDERED: ALBUTEROL SULFATE 2.5 MG/3 ML NPPB PRN (14:00)
[2018-04-18] MEDS ORDERED: LABETALOL 5MG/ML, 20ML IVPush PRN (14:00)
[2018-04-18] MEDS ORDERED: morphine SULFATE 10 MG/ML, 1ML IVPush PRN (14:00)
[2018-04-18] MEDS ORDERED: OXYcodone/APAP 5/325MG TABLET PO PRN (14:00)
[2018-04-18] MEDS ORDERED: RIVA10TA PO (14:04)
[2018-04-18] MEDS ORDERED: ATOR10TA9 PO (14:04)
[2018-04-18] MEDS ORDERED: PHEN-418 PO (14:04)
[2018-04-18] MEDS ORDERED: PHEN95TA25 PO (14:04)
[2018-04-18] MEDS ORDERED: SULF1TAB24 PO (14:04)
[2018-04-18] MEDS ORDERED: NITR100C PO (14:04)
[2018-04-18] MEDS ORDERED: DOCU-131 PO (14:04)
[2018-04-18] MEDS ORDERED: ENOX40SY4 SQ (14:04)
[2018-04-18 14:36] LABS: BASOPHILS # (AUTO) 0.24 x10^3/uL (0-0.1); BASOPHILS % (AUTO) 2 % (0-1); EOSINOPHILS # (AUTO) 0.13 x10^3/uL (0-0.4); EOSINOPHILS % (AUTO) 1 % (1-7); LYMPHOCYTES # (AUTO) 2.67 x10^3/uL (1-3.4); LYMPHOCYTES % (AUTO) 22 % (22-44); MD NO; MEAN CORPUSCULAR HEMOGLOBIN 27.8 pg (27.0-34.8); MEAN CORPUSCULAR VOLUME 84.3 fL (80-100); MEAN PLATELET VOLUME 6.9 fL (7.4-10.4); MONOCYTES # (AUTO) 0.64 x10^3/uL (0.2-0.8); MONOCYTES % (AUTO) 5 % (2-9); NEUTROPHILS # (AUTO) 8.53 x10^3/uL (1.8-6.8); NEUTROPHILS % (AUTO) 70 % (42-75); PLATELET COUNT 390 x10^3/uL (130-400); RED BLOOD COUNT 4.67 x10^6/uL (3.82-5.3); RED CELL DISTRIBUTION WIDTH 13.6 % (9.6-15.2)
[2018-04-18 14:44] LABS: ALANINE AMINOTRANSFERASE 28 U/L (12-78); ALBUMIN 3.3 g/dL (3.4-5.0); ANION GAP 9 mmol/L (5-15); CALCIUM 10.6 mg/dL (8.5-10.1); CHLORIDE 105 mmol/L (98-107)
[2018-04-18 14:55] LABS: ALKALINE PHOSPHATASE 198 U/L (45-117); BILIRUBIN,TOTAL 0.3 mg/dL (0.2-1.0); CREATININE 1.01 mg/dL (0.55-1.02); FREE T4 (FREE THYROXINE) 0.99 ng/dL (0.76-1.46); TOTAL PROTEIN 6.9 g/dL (6.4-8.2)
[2018-04-18 15:04] VITALS: BP 108/74
[2018-04-18 15:14] LABS: HCT (SEDRATE) 39.3 % (34.6-47.8)
[2018-04-18] MEDS: INSULIN LISPRO 100 UNITS/ML, PEN SQ-INSULIN SCH ×2 (16:30→20:49)
[2018-04-18] MEDS: SODIUM CHLORIDE 0.9% 1,000 ML IV SCH (16:31)
[2018-04-18] MEDS: SULFAMETH./TRIMETHOPRIM DS 800MG/160MG TABLET PO SCH (20:39)
[2018-04-18] MEDS: MONTELUKAST 10 MG TABLET PO SCH (20:40)
[2018-04-18] MEDS: TIZANIDINE 4MG TABLET PO SCH (20:40)
[2018-04-18] MEDS: SIMVASTATIN 20 MG TABLET PO SCH (20:40)
[2018-04-18] MEDS: CETIRIZINE 10 MG TABLET PO SCH (20:40)
[2018-04-18] MEDS: PHENAZOPYRIDINE 200 MG TABLET PO PRN (20:40)
[2018-04-18] MEDS ORDERED: SALMETEROL XINAFOATE 50 MCG PO SCH (21:00)
[2018-04-18] MEDS: GABAPENTIN 100 MG CAPSULE PO SCH (23:38)
[2018-04-18 23:54] VITALS: BP 95/63
[2018-04-19 02:59] VITALS: BP 109/75
[2018-04-19] MEDS: PHENAZOPYRIDINE 200 MG TABLET PO PRN ×2 (04:57→14:52)
[2018-04-19 05:33] LABS: ALBUMIN 2.9 g/dL (3.4-5.0); ANION GAP 7 mmol/L (5-15); CALCIUM 10.5 mg/dL (8.5-10.1); CHLORIDE 107 mmol/L (98-107)
[2018-04-19 05:37] LABS: ALANINE AMINOTRANSFERASE 30 U/L (12-78); ALKALINE PHOSPHATASE 168 U/L (45-117); BILIRUBIN,TOTAL 0.3 mg/dL (0.2-1.0); CREATININE 0.95 mg/dL (0.55-1.02); TOTAL PROTEIN 6.1 g/dL (6.4-8.2)
[2018-04-19 05:39] LABS: BASOPHILS # (AUTO) 0.04 x10^3/uL (0-0.1); BASOPHILS % (AUTO) 0 % (0-1); EOSINOPHILS # (AUTO) 0.25 x10^3/uL (0-0.4); EOSINOPHILS % (AUTO) 3 % (1-7); LYMPHOCYTES # (AUTO) 2.98 x10^3/uL (1-3.4); LYMPHOCYTES % (AUTO) 30 % (22-44); MD NO; MEAN CORPUSCULAR HEMOGLOBIN 27.9 pg (27.0-34.8); MEAN CORPUSCULAR HGB CONC 32.7 g/dL (32.4-35.8); MEAN CORPUSCULAR VOLUME 85.2 fL (80-100); MEAN PLATELET VOLUME 6.9 fL (7.4-10.4); MONOCYTES % (AUTO) 8 % (2-9); NEUTROPHILS # (AUTO) 5.97 x10^3/uL (1.8-6.8); NEUTROPHILS % (AUTO) 59 % (42-75); PLATELET COUNT 350 x10^3/uL (130-400); RED BLOOD COUNT 4.31 x10^6/uL (3.82-5.3); RED CELL DISTRIBUTION WIDTH 14.4 % (9.6-15.2)
[2018-04-19] MEDS ORDERED: TRANEXAMIC ACID 100 MG/ML, 10ML ONE ×2 (06:20→08:00)
[2018-04-19] MEDS ORDERED: KETOROLAC 60 MG/2 ML ONE (06:20)
[2018-04-19] MEDS ORDERED: ROPIvacaine/PF 0.2%, 20 ML ONE ×2 (06:20→10:42)
[2018-04-19] MEDS ORDERED: VANCOMYCIN 1,000 MG ONE ×2 (06:20→08:00)
[2018-04-19] MEDS ORDERED: EPINEPHRINE 1 MG/ML, 1ML ONE (06:21)
[2018-04-19] MEDS ORDERED: VANCOMYCIN 1,800 MG in SODIUM CHLORIDE 0.9% 250 ML IV ONE (06:30)
[2018-04-19] MEDS ORDERED: VANCOMYCIN PER PHARMACY MC PRN (06:30)
[2018-04-19] MEDS ORDERED: GABAPENTIN 300 MG CAPSULE ONE (06:58)
[2018-04-19] MEDS ORDERED: ONDANSETRON ODT 8 MG ONE ×2 (06:59→13:31)
[2018-04-19] MEDS ORDERED: ACETAMINOPHEN 500 MG TABLET ONE (06:59)
[2018-04-19] MEDS ORDERED: ONDANSETRON ODT 8 MG PO ONE (07:00)
[2018-04-19] MEDS ORDERED: GABAPENTIN 300 MG CAPSULE PO ONE (07:00)
[2018-04-19] MEDS: INSULIN LISPRO 100 UNITS/ML, PEN SQ-INSULIN SCH ×4 (07:00→21:46)
[2018-04-19] MEDS ORDERED: ACETAMINOPHEN 500 MG TABLET PO ONE (07:00)
[2018-04-19] MEDS ORDERED: FENTANYL PF 250 MCG/5ML ONE ×2 (07:03→08:39)
[2018-04-19] MEDS ORDERED: PHENYLEPHRINE 10 MG/ML ONE (07:29)
[2018-04-19] MEDS ORDERED: TRANEXAMIC ACID 100 MG/ML, 10ML IV ONE (07:30)
[2018-04-19] MEDS ORDERED: TRANEXAMIC ACID 2,000 MG in SODIUM CHLORIDE 0.9% 100 ML IV ONE (07:30)
[2018-04-19] MEDS ORDERED: FENTANYL PF 100 MCG/2ML IV PRN (08:30)
[2018-04-19] MEDS ORDERED: hydrALAzine 20 MG/ML, 1ML IV PRN (08:30)
[2018-04-19] MEDS ORDERED: ROPIvacaine/PF 0.2%, 100ML 550 ML (check volume) INJ ONE (08:30)
[2018-04-19] MEDS ORDERED: PROMETHAZINE 12.5 MG SUPP PR PRN ×2 (08:30→12:30)
[2018-04-19] MEDS ORDERED: LABETALOL 5MG/ML, 20ML IV PRN (08:30)
[2018-04-19] MEDS ORDERED: MIDAZOLAM 1 MG/ML, 2ML IV PRN (08:30)
[2018-04-19] MEDS ORDERED: ONDANSETRON ODT 8 MG PO PRN (08:30)
[2018-04-19] MEDS ORDERED: MEPERIDINE/PF 25MG/0.5ML IVPush PRN (08:30)
[2018-04-19] MEDS ORDERED: ALBUTEROL/IPRATROPIUM 2.5MG/0.5MG, 3 ML NPPB PRN (08:30)
[2018-04-19] MEDS ORDERED: EPHEDRINE 50 MG/ML, 1ML IM PRN (08:30)
[2018-04-19] MEDS ORDERED: OXYcodone 5 MG/5 ML ORAL.SOL UDC PO PRN (08:30)
[2018-04-19] MEDS: MULTIVITAMIN 1 TABLET PO SCH (09:00)
[2018-04-19] MEDS: LIOTHYRONINE 25 MCG TABLET PO SCH (09:00)
[2018-04-19] MEDS: CHOLECALCIFEROL 5,000u TAB PO SCH (09:00)
[2018-04-19] MEDS: ASCORBIC ACID 500 MG TABLET PO SCH (09:00)
[2018-04-19] MEDS ORDERED: BENAZEPRIL 20 MG TABLET PO SCH (09:00)
[2018-04-19] MEDS ORDERED: AMLODIPINE 10 MG TAB PO SCH (09:00)
[2018-04-19] MEDS: OMEGA-3/FISH OIL CAPSULE PO SCH (09:00)
[2018-04-19] MEDS: SODIUM CHLORIDE 0.9% 1,000 ML IV SCH ×3 (09:45→22:58)
[2018-04-19 10:21] LABS: CELLS COUNTED 220
[2018-04-19] MEDS ORDERED: DEXAMETHASONE 4 MG/ML, 1ML ONE (10:42)
[2018-04-19] MEDS ORDERED: SUCCINYLCHOLINE 20 MG/ML, 10ML ONE (10:42)
[2018-04-19] MEDS ORDERED: PROPOFOL 10 MG/ML, 20ML ONE (10:42)
[2018-04-19] MEDS ORDERED: CEFAZOLIN 1,000 MG ONE (10:42)
[2018-04-19] MEDS ORDERED: FENTANYL PF 100 MCG/2ML ONE ×2 (12:11→12:41)
[2018-04-19] MEDS ORDERED: DIPHENHYDRAMINE 50 MG CAPSULE PO PRN (12:30)
[2018-04-19] MEDS ORDERED: PROMETHAZINE 25 MG/ML, 1ML IM PRN (12:30)
[2018-04-19] MEDS ORDERED: ACETAMINOPHEN 650 MG/20.3 ML UDC PO PRN (12:30)
[2018-04-19] MEDS ORDERED: OXYcodone IR 5MG TABLET PO PRN (12:30)
[2018-04-19] MEDS ORDERED: ZOLPIDEM 5MG TABLET PO PRN (12:30)
[2018-04-19] MEDS ORDERED: ONDANSETRON 4 MG TABLET PO PRN (12:30)
[2018-04-19] MEDS ORDERED: HYDROmorphone 1 MG/ML, 1ML IV PRN (12:30)
[2018-04-19] MEDS ORDERED: MAGNESIUM HYDROXIDE 8%, 30ML UDC PO PRN (12:30)
[2018-04-19] MEDS ORDERED: SENNA/DOCUSATE TABLET PO PRN (12:30)
[2018-04-19] MEDS ORDERED: ALUMINUM/MAG/SIMETHICONE 30 ML UDC PO PRN (12:30)
[2018-04-19] MEDS ORDERED: BISACODYL 10 MG SUPP PR PRN (12:30)
[2018-04-19] MEDS ORDERED: ONDANSETRON 2MG/ML, 2ML IV PRN (12:30)
[2018-04-19] MEDS: HYDROmorphone 1 MG/ML, 1ML IV PRN ×4 (12:33→13:28)
[2018-04-19] MEDS ORDERED: OXYcodone 5 MG/5 ML ORAL.SOL UDC ONE (12:42)
[2018-04-19] MEDS ORDERED: HYDROmorphone 2 MG/ML, 1ML ONE ×2 (12:42→16:31)
[2018-04-19] MEDS ORDERED: TRANEXAMIC ACID 2,000 MG in SODIUM CHLORIDE 0.9% 100 ML IVPB ONE (12:45)
[2018-04-19 14:00] VITALS: BP 95/69
[2018-04-19] MEDS ORDERED: KETOROLAC 30 MG/1 ML ONE (14:35)
[2018-04-19] MEDS: SULFAMETH./TRIMETHOPRIM DS 800MG/160MG TABLET PO SCH (14:49)
[2018-04-19 17:49] LABS: HEMOGLOBIN A1C 5.4 % (4.2-6.3)
[2018-04-19 20:39] VITALS: BP 107/71
[2018-04-19] MEDS: TIZANIDINE 4MG TABLET PO SCH (22:00)
[2018-04-19] MEDS: CETIRIZINE 10 MG TABLET PO SCH (22:18)
[2018-04-19] MEDS: SIMVASTATIN 20 MG TABLET PO SCH (22:18)
[2018-04-19] MEDS: MONTELUKAST 10 MG TABLET PO SCH (22:18)
[2018-04-19] MEDS: DOCUSATE 100 MG CAPSULE PO SCH (22:18)
[2018-04-19] MEDS: HYDROcodone/APAP 10/325 MG TABLET PO PRN (22:18)
[2018-04-20] MEDS: SULFAMETH./TRIMETHOPRIM DS 800MG/160MG TABLET PO SCH ×3 (00:24→21:35)
[2018-04-20] MEDS: GABAPENTIN 100 MG CAPSULE PO SCH (00:25)
[2018-04-20] MEDS: PHENAZOPYRIDINE 200 MG TABLET PO PRN ×2 (00:35→08:13)
[2018-04-20 04:01] VITALS: BP 100/69
[2018-04-20] MEDS: HYDROcodone/APAP 10/325 MG TABLET PO PRN ×4 (04:28→21:35)
[2018-04-20 05:58] LABS: MEAN CORPUSCULAR HEMOGLOBIN 28.9 pg (27.0-34.8); MEAN CORPUSCULAR HGB CONC 33.8 g/dL (32.4-35.8); MEAN CORPUSCULAR VOLUME 85.6 fL (80-100); MEAN PLATELET VOLUME 7.3 fL (7.4-10.4); PLATELET COUNT 383 x10^3/uL (130-400); RED BLOOD COUNT 3.21 x10^6/uL (3.82-5.3); RED CELL DISTRIBUTION WIDTH 14.2 % (9.6-15.2)
[2018-04-20] MEDS ORDERED: DEXAMETHASONE 4 MG/ML, 1ML IVPush SCH (06:00)
[2018-04-20 06:08] LABS: ALBUMIN 2.7 g/dL (3.4-5.0); ANION GAP 8 mmol/L (5-15); CALCIUM 9.9 mg/dL (8.5-10.1); CHLORIDE 106 mmol/L (98-107)
[2018-04-20 06:12] LABS: ALANINE AMINOTRANSFERASE 27 U/L (12-78); ALKALINE PHOSPHATASE 143 U/L (45-117); BILIRUBIN,TOTAL 0.3 mg/dL (0.2-1.0); CREATININE 1.44 mg/dL (0.55-1.02); TOTAL PROTEIN 5.7 g/dL (6.4-8.2)
[2018-04-20] MEDS: RIVAROXABAN 10 MG TABLET PO SCH ×2 (06:19→08:13)
[2018-04-20 06:24] LABS: BASOPHILS # (AUTO) 0.03 x10^3/uL (0-0.1); BASOPHILS % (AUTO) 0 % (0-1); EOSINOPHILS # (AUTO) 0.01 x10^3/uL (0-0.4); EOSINOPHILS % (AUTO) 0 % (1-7); LYMPHOCYTES # (AUTO) 2.01 x10^3/uL (1-3.4); LYMPHOCYTES % (AUTO) 8 % (22-44); MD SCAN; MONOCYTES # (AUTO) 1.68 x10^3/uL (0.2-0.8); MONOCYTES % (AUTO) 7 % (2-9); NEUTROPHILS # (AUTO) 21.43 x10^3/uL (1.8-6.8); NEUTROPHILS % (AUTO) 85 % (42-75)
[2018-04-20] MEDS: INSULIN LISPRO 100 UNITS/ML, PEN SQ-INSULIN SCH ×4 (07:00→21:20)
[2018-04-20] MEDS ORDERED: VANCOMYCIN PER PHARMACY MC SCH (07:00)
[2018-04-20 07:19] VITALS: BP 116/73
[2018-04-20] MEDS: SODIUM CHLORIDE 0.9% 1,000 ML IV SCH ×3 (07:23→20:30)
[2018-04-20] MEDS ORDERED: PHARMACOKINETIC CONSULTATION MC ONE (07:30)
[2018-04-20] MEDS ORDERED: VANCOMYCIN PER PHARMACY MC PRN (07:30)
[2018-04-20] MEDS ORDERED: PHARMACOKINETIC MONITORING MC PRN (07:30)
[2018-04-20] MEDS ORDERED: VANCOMYCIN 2,000 MG in SODIUM CHLORIDE 0.9% 500 ML IV ONE (08:00)
[2018-04-20] MEDS: OMEGA-3/FISH OIL CAPSULE PO SCH (08:12)
[2018-04-20] MEDS: ASCORBIC ACID 500 MG TABLET PO SCH (08:13)
[2018-04-20] MEDS: DOCUSATE 100 MG CAPSULE PO SCH ×2 (08:13→21:35)
[2018-04-20] MEDS: CHOLECALCIFEROL 5,000u TAB PO SCH (08:13)
[2018-04-20] MEDS: MULTIVITAMIN 1 TABLET PO SCH (08:14)
[2018-04-20] MEDS: MULTIVITAMINS/MINERALS TABLET PO SCH (08:14)
[2018-04-20] MEDS: LIOTHYRONINE 25 MCG TABLET PO SCH (08:27)
[2018-04-20 09:59] LABS: MICROSCOPIC INDICATED
[2018-04-20 10:07] LABS: CULTURE INDICATED? YES
[2018-04-20] MEDS ORDERED: KETOROLAC 30 MG/1 ML IV SCH (12:30)
[2018-04-20 13:11] VITALS: BP 120/78
[2018-04-20] MEDS ORDERED: SODIUM CHLORIDE 0.9% 1,000 ML IV SCH (13:45)
[2018-04-20 19:30] VITALS: BP 107/70
[2018-04-20] MEDS: TIZANIDINE 4MG TABLET PO SCH (21:21)
[2018-04-20] MEDS: SIMVASTATIN 20 MG TABLET PO SCH (21:35)
[2018-04-20] MEDS: MONTELUKAST 10 MG TABLET PO SCH (21:35)
[2018-04-20] MEDS: CETIRIZINE 10 MG TABLET PO SCH (21:35)
[2018-04-21] MEDS: GABAPENTIN 100 MG CAPSULE PO SCH ×2 (00:05→23:30)
[2018-04-21 01:30] VITALS: BP 112/73
[2018-04-21] MEDS: SODIUM CHLORIDE 0.9% 1,000 ML IV SCH (04:30)
[2018-04-21 05:51] LABS: ALANINE AMINOTRANSFERASE 23 U/L (12-78); ALBUMIN 2.6 g/dL (3.4-5.0); ANION GAP 5 mmol/L (5-15); CALCIUM 9.7 mg/dL (8.5-10.1); CHLORIDE 107 mmol/L (98-107); CREATININE 0.95 mg/dL (0.55-1.02)
[2018-04-21 05:53] LABS: ALKALINE PHOSPHATASE 115 U/L (45-117); BILIRUBIN,TOTAL 0.2 mg/dL (0.2-1.0); TOTAL PROTEIN 5.4 g/dL (6.4-8.2); VANCOMYCIN,RANDOM 11.2 mcg/mL
[2018-04-21 05:58] LABS: BASOPHILS # (AUTO) 0.05 x10^3/uL (0-0.1); BASOPHILS % (AUTO) 0 % (0-1); EOSINOPHILS % (AUTO) 0 % (1-7); LYMPHOCYTES # (AUTO) 2.44 x10^3/uL (1-3.4); LYMPHOCYTES % (AUTO) 17 % (22-44); MD NO; MEAN CORPUSCULAR HEMOGLOBIN 27.6 pg (27.0-34.8); MEAN CORPUSCULAR HGB CONC 32.8 g/dL (32.4-35.8); MEAN CORPUSCULAR VOLUME 84.1 fL (80-100); MEAN PLATELET VOLUME 6.8 fL (7.4-10.4); MONOCYTES # (AUTO) 1.25 x10^3/uL (0.2-0.8); MONOCYTES % (AUTO) 9 % (2-9); NEUTROPHILS # (AUTO) 10.51 x10^3/uL (1.8-6.8); NEUTROPHILS % (AUTO) 74 % (42-75); PLATELET COUNT 301 x10^3/uL (130-400); RED BLOOD COUNT 2.76 x10^6/uL (3.82-5.3); RED CELL DISTRIBUTION WIDTH 13.8 % (9.6-15.2)
[2018-04-21] MEDS: HYDROcodone/APAP 10/325 MG TABLET PO PRN ×2 (06:28→10:11)
[2018-04-21] MEDS: INSULIN LISPRO 100 UNITS/ML, PEN SQ-INSULIN SCH ×4 (06:37→21:00)
[2018-04-21 08:04] VITALS: BP 101/67
[2018-04-21] MEDS: DOCUSATE 100 MG CAPSULE PO SCH ×2 (10:11→21:00)
[2018-04-21] MEDS: SULFAMETH./TRIMETHOPRIM DS 800MG/160MG TABLET PO SCH (10:11)
[2018-04-21] MEDS: RIVAROXABAN 10 MG TABLET PO SCH (10:11)
[2018-04-21] MEDS: MULTIVITAMIN 1 TABLET PO SCH (10:11)
[2018-04-21] MEDS: CHOLECALCIFEROL 5,000u TAB PO SCH (10:11)
[2018-04-21] MEDS: MAGNESIUM CITRATE 300ML ORAL SOL PO PRN ×2 (10:12→13:44)
[2018-04-21] MEDS: LIOTHYRONINE 25 MCG TABLET PO SCH (10:12)
[2018-04-21] MEDS: VANCOMYCIN 2,000 MG in SODIUM CHLORIDE 0.9% 500 ML IV SCH (10:12)
[2018-04-21] MEDS: OMEGA-3/FISH OIL CAPSULE PO SCH (10:12)
[2018-04-21] MEDS: MULTIVITAMINS/MINERALS TABLET PO SCH (10:12)
[2018-04-21] MEDS: ASCORBIC ACID 500 MG TABLET PO SCH (10:12)
[2018-04-21 13:20] VITALS: BP 111/73
[2018-04-21] MEDS: MEROPENEM 1 GM in SODIUM CHLORIDE 0.9% 100 ML IV SCH (14:43)
[2018-04-21 20:52] VITALS: BP 115/61
[2018-04-21] MEDS: SIMVASTATIN 20 MG TABLET PO SCH (22:30)
[2018-04-21] MEDS: MONTELUKAST 10 MG TABLET PO SCH (22:30)
[2018-04-21] MEDS: CETIRIZINE 10 MG TABLET PO SCH (22:30)
[2018-04-21] MEDS: TIZANIDINE 4MG TABLET PO SCH (22:30)
[2018-04-22] VITALS (10 sets, daily range): BP systolic 98–136; BP diastolic 53–84
[2018-04-22 05:21] LABS: BASOPHILS # (AUTO) 0.04 x10^3/uL (0-0.1); BASOPHILS % (AUTO) 0 % (0-1); EOSINOPHILS # (AUTO) 0.19 x10^3/uL (0-0.4); EOSINOPHILS % (AUTO) 2 % (1-7); LYMPHOCYTES # (AUTO) 2.75 x10^3/uL (1-3.4); LYMPHOCYTES % (AUTO) 28 % (22-44); MD NO; MEAN CORPUSCULAR HEMOGLOBIN 28.2 pg (27.0-34.8); MEAN CORPUSCULAR HGB CONC 33.5 g/dL (32.4-35.8); MEAN CORPUSCULAR VOLUME 84.1 fL (80-100); MEAN PLATELET VOLUME 6.8 fL (7.4-10.4); MONOCYTES # (AUTO) 1.05 x10^3/uL (0.2-0.8); MONOCYTES % (AUTO) 11 % (2-9); NEUTROPHILS # (AUTO) 5.86 x10^3/uL (1.8-6.8); NEUTROPHILS % (AUTO) 59 % (42-75); PLATELET COUNT 280 x10^3/uL (130-400); RED BLOOD COUNT 2.57 x10^6/uL (3.82-5.3); RED CELL DISTRIBUTION WIDTH 14.2 % (9.6-15.2)
[2018-04-22 05:30] LABS: ALBUMIN 2.5 g/dL (3.4-5.0); ANION GAP 6 mmol/L (5-15); CALCIUM 9.1 mg/dL (8.5-10.1); CHLORIDE 106 mmol/L (98-107)
[2018-04-22 05:35] LABS: ALANINE AMINOTRANSFERASE 21 U/L (12-78); ALKALINE PHOSPHATASE 110 U/L (45-117); BILIRUBIN,TOTAL 0.2 mg/dL (0.2-1.0); TOTAL PROTEIN 5.1 g/dL (6.4-8.2)
[2018-04-22] MEDS: MEROPENEM 1 GM in SODIUM CHLORIDE 0.9% 100 ML IV SCH (05:39)
[2018-04-22] MEDS: INSULIN LISPRO 100 UNITS/ML, PEN SQ-INSULIN SCH ×4 (06:48→21:20)
[2018-04-22 08:20] LABS: FOLATE LEVEL 17.9 ng/mL (3.1-17.5)
[2018-04-22] MEDS: DOCUSATE 100 MG CAPSULE PO SCH ×2 (09:00→21:05)
[2018-04-22 09:07] LABS: OCCULT BLOOD POSITIVE (NEGATIVE)
[2018-04-22] MEDS: MULTIVITAMINS/MINERALS TABLET PO SCH (09:27)
[2018-04-22] MEDS: ASCORBIC ACID 500 MG TABLET PO SCH (09:27)
[2018-04-22] MEDS: OMEGA-3/FISH OIL CAPSULE PO SCH (09:27)
[2018-04-22] MEDS: MULTIVITAMIN 1 TABLET PO SCH (09:28)
[2018-04-22] MEDS: LIOTHYRONINE 25 MCG TABLET PO SCH (09:28)
[2018-04-22] MEDS: RIVAROXABAN 10 MG TABLET PO SCH (09:28)
[2018-04-22] MEDS: CHOLECALCIFEROL 5,000u TAB PO SCH (09:28)
[2018-04-22] MEDS: PHENAZOPYRIDINE 200 MG TABLET PO PRN (12:12)
[2018-04-22] MEDS: CEFTAZIDIME 1,000 MG in SODIUM CHLORIDE 0.9% 50 ML IV SCH (16:58)
[2018-04-22] MEDS: SIMVASTATIN 20 MG TABLET PO SCH (21:06)
[2018-04-22] MEDS: MONTELUKAST 10 MG TABLET PO SCH (21:06)
[2018-04-22] MEDS: CETIRIZINE 10 MG TABLET PO SCH (21:21)
[2018-04-22] MEDS: PANTOPRAZOLE 40 MG IV IVPush SCH (22:01)
[2018-04-22] MEDS: VANCOMYCIN 2,000 MG in SODIUM CHLORIDE 0.9% 500 ML IV SCH (22:02)
[2018-04-23] MEDS: CEFTAZIDIME 1,000 MG in SODIUM CHLORIDE 0.9% 50 ML IV SCH ×4 (00:24→18:18)
[2018-04-23] MEDS: GABAPENTIN 100 MG CAPSULE PO SCH ×2 (00:24→21:00)
[2018-04-23] MEDS: TIZANIDINE 4MG TABLET PO SCH ×2 (00:27→21:00)
[2018-04-23 01:28] VITALS: BP 136/74
[2018-04-23 05:09] LABS: BASOPHILS # (AUTO) 0.03 x10^3/uL (0-0.1); BASOPHILS % (AUTO) 0 % (0-1); EOSINOPHILS # (AUTO) 0.18 x10^3/uL (0-0.4); EOSINOPHILS % (AUTO) 2 % (1-7); LYMPHOCYTES # (AUTO) 2.58 x10^3/uL (1-3.4); LYMPHOCYTES % (AUTO) 23 % (22-44); MD NO; MEAN CORPUSCULAR HEMOGLOBIN 28.6 pg (27.0-34.8); MEAN CORPUSCULAR HGB CONC 33.6 g/dL (32.4-35.8); MEAN CORPUSCULAR VOLUME 85.1 fL (80-100); MEAN PLATELET VOLUME 6.7 fL (7.4-10.4); MONOCYTES # (AUTO) 0.95 x10^3/uL (0.2-0.8); MONOCYTES % (AUTO) 9 % (2-9); NEUTROPHILS % (AUTO) 67 % (42-75); PLATELET COUNT 342 x10^3/uL (130-400); RED BLOOD COUNT 3.18 x10^6/uL (3.82-5.3); RED CELL DISTRIBUTION WIDTH 14.2 % (9.6-15.2)
[2018-04-23 05:16] LABS: CHLORIDE 111 mmol/L (98-107)
[2018-04-23 05:30] LABS: ALANINE AMINOTRANSFERASE 25 U/L (12-78); ALBUMIN 2.3 g/dL (3.4-5.0); ALKALINE PHOSPHATASE 121 U/L (45-117); ANION GAP 8 mmol/L (5-15); BILIRUBIN,TOTAL 0.5 mg/dL (0.2-1.0); CALCIUM 9.5 mg/dL (8.5-10.1); CREATININE 0.67 mg/dL (0.55-1.02)
[2018-04-23] MEDS: INSULIN LISPRO 100 UNITS/ML, PEN SQ-INSULIN SCH ×4 (06:14→21:00)
[2018-04-23] MEDS: PANTOPRAZOLE 40 MG IV IVPush SCH ×2 (07:34→19:46)
[2018-04-23 08:10] VITALS: BP 139/78
[2018-04-23] MEDS: OMEGA-3/FISH OIL CAPSULE PO SCH (09:54)
[2018-04-23] MEDS: MULTIVITAMINS/MINERALS TABLET PO SCH (09:54)
[2018-04-23] MEDS: DOCUSATE 100 MG CAPSULE PO SCH ×2 (09:54→21:00)
[2018-04-23] MEDS: ASCORBIC ACID 500 MG TABLET PO SCH (09:54)
[2018-04-23] MEDS: ENOXAPARIN 40 MG/0.4 ML SQ SCH (09:55)
[2018-04-23] MEDS: MULTIVITAMIN 1 TABLET PO SCH (09:55)
[2018-04-23] MEDS: LIOTHYRONINE 25 MCG TABLET PO SCH (09:55)
[2018-04-23] MEDS: CHOLECALCIFEROL 5,000u TAB PO SCH (09:55)
[2018-04-23 13:33] VITALS: BP 132/72
[2018-04-23] MEDS: PHENAZOPYRIDINE 200 MG TABLET PO PRN (15:52)
[2018-04-23 18:41] VITALS: BP 143/78
[2018-04-23] MEDS: SIMVASTATIN 20 MG TABLET PO SCH (22:10)
[2018-04-23] MEDS: VANCOMYCIN 2,000 MG in SODIUM CHLORIDE 0.9% 500 ML IV SCH (22:10)
[2018-04-23] MEDS: CETIRIZINE 10 MG TABLET PO SCH (22:10)
[2018-04-23] MEDS: MONTELUKAST 10 MG TABLET PO SCH (22:10)
[2018-04-24 00:40] VITALS: BP 139/87
[2018-04-24] MEDS: PHENAZOPYRIDINE 200 MG TABLET PO PRN (00:52)
[2018-04-24] MEDS: GABAPENTIN 100 MG CAPSULE PO SCH ×2 (00:52→23:52)
[2018-04-24] MEDS: CEFTAZIDIME 1,000 MG in SODIUM CHLORIDE 0.9% 50 ML IV SCH ×3 (02:47→18:32)
[2018-04-24] MEDS: INSULIN LISPRO 100 UNITS/ML, PEN SQ-INSULIN SCH (05:00)
[2018-04-24 05:24] LABS: BASOPHILS # (AUTO) 0.05 x10^3/uL (0-0.1); BASOPHILS % (AUTO) 0 % (0-1); EOSINOPHILS # (AUTO) 0.26 x10^3/uL (0-0.4); EOSINOPHILS % (AUTO) 3 % (1-7); LYMPHOCYTES # (AUTO) 2.92 x10^3/uL (1-3.4); LYMPHOCYTES % (AUTO) 28 % (22-44); MD NO; MEAN CORPUSCULAR HEMOGLOBIN 29.2 pg (27.0-34.8); MEAN CORPUSCULAR HGB CONC 33.6 g/dL (32.4-35.8); MEAN CORPUSCULAR VOLUME 86.9 fL (80-100); MEAN PLATELET VOLUME 6.7 fL (7.4-10.4); MONOCYTES # (AUTO) 0.84 x10^3/uL (0.2-0.8); MONOCYTES % (AUTO) 8 % (2-9); NEUTROPHILS # (AUTO) 6.25 x10^3/uL (1.8-6.8); NEUTROPHILS % (AUTO) 61 % (42-75); PLATELET COUNT 355 x10^3/uL (130-400); RED BLOOD COUNT 3.31 x10^6/uL (3.82-5.3); RED CELL DISTRIBUTION WIDTH 14.7 % (9.6-15.2)
[2018-04-24 06:48] VITALS: BP 136/87
[2018-04-24] MEDS ORDERED: ALUMINUM/MAG/SIMETHICONE 30 ML UDC PO PRN (07:34)
[2018-04-24] MEDS ORDERED: MAGNESIUM HYDROXIDE 8%, 30ML UDC PO PRN (07:36)
[2018-04-24] MEDS: CHOLECALCIFEROL 5,000u TAB PO SCH (08:33)
[2018-04-24] MEDS: LIOTHYRONINE 25 MCG TABLET PO SCH (08:33)
[2018-04-24] MEDS: ENOXAPARIN 40 MG/0.4 ML SQ SCH (08:33)
[2018-04-24] MEDS: ASCORBIC ACID 500 MG TABLET PO SCH (08:33)
[2018-04-24] MEDS: DOXYCYCLINE 100MG CAP PO SCH ×2 (08:34→20:37)
[2018-04-24] MEDS: DOCUSATE 100 MG CAPSULE PO SCH (08:34)
[2018-04-24] MEDS: OMEGA-3/FISH OIL CAPSULE PO SCH (08:34)
[2018-04-24] MEDS: PANTOPRAZOLE 40 MG IV IVPush SCH ×2 (08:34→20:37)
[2018-04-24] MEDS: MULTIVITAMINS/MINERALS TABLET PO SCH (11:43)
[2018-04-24 12:31] VITALS: BP 137/98
[2018-04-24 19:45] VITALS: BP 121/81
[2018-04-24] MEDS: SIMVASTATIN 20 MG TABLET PO SCH (20:37)
[2018-04-24] MEDS: MONTELUKAST 10 MG TABLET PO SCH (20:46)
[2018-04-24] MEDS: CETIRIZINE 10 MG TABLET PO SCH (20:46)
[2018-04-24] MEDS: TIZANIDINE 4MG TABLET PO SCH (20:46)
[2018-04-24] MEDS: DIAZEPAM 5 MG TABLET PO PRN (23:52)
[2018-04-25] MEDS: CEFTAZIDIME 1,000 MG in SODIUM CHLORIDE 0.9% 50 ML IV SCH ×2 (02:35→11:36)
[2018-04-25 05:22] LABS: BASOPHILS # (AUTO) 0.05 x10^3/uL (0-0.1); BASOPHILS % (AUTO) 1 % (0-1); EOSINOPHILS # (AUTO) 0.32 x10^3/uL (0-0.4); EOSINOPHILS % (AUTO) 3 % (1-7); LYMPHOCYTES # (AUTO) 3.26 x10^3/uL (1-3.4); LYMPHOCYTES % (AUTO) 30 % (22-44); MD NO; MEAN CORPUSCULAR HEMOGLOBIN 28.7 pg (27.0-34.8); MEAN CORPUSCULAR HGB CONC 33.2 g/dL (32.4-35.8); MEAN CORPUSCULAR VOLUME 86.5 fL (80-100); MEAN PLATELET VOLUME 6.4 fL (7.4-10.4); MONOCYTES # (AUTO) 1.06 x10^3/uL (0.2-0.8); MONOCYTES % (AUTO) 10 % (2-9); NEUTROPHILS # (AUTO) 6.13 x10^3/uL (1.8-6.8); NEUTROPHILS % (AUTO) 57 % (42-75); PLATELET COUNT 370 x10^3/uL (130-400); RED BLOOD COUNT 3.26 x10^6/uL (3.82-5.3); RED CELL DISTRIBUTION WIDTH 15.3 % (9.6-15.2)
[2018-04-25 05:29] LABS: CHLORIDE 110 mmol/L (98-107)
[2018-04-25 05:40] LABS: ALANINE AMINOTRANSFERASE 24 U/L (12-78); ALBUMIN 2.3 g/dL (3.4-5.0); ALKALINE PHOSPHATASE 119 U/L (45-117); ANION GAP 7 mmol/L (5-15); BILIRUBIN,TOTAL 0.4 mg/dL (0.2-1.0); CALCIUM 10.1 mg/dL (8.5-10.1); CREATININE 0.62 mg/dL (0.55-1.02)
[2018-04-25 06:08] VITALS: BP 143/88
[2018-04-25] MEDS ORDERED: POTASSIUM CHLORIDE 20 MEQ TAB.ER.PRT PO ONE (08:00)
[2018-04-25 08:07] VITALS: BP 134/84
[2018-04-25] MEDS: LIOTHYRONINE 25 MCG TABLET PO SCH (08:49)
[2018-04-25] MEDS: CHOLECALCIFEROL 5,000u TAB PO SCH (08:50)
[2018-04-25] MEDS: DOXYCYCLINE 100MG CAP PO SCH ×2 (08:50→22:18)
[2018-04-25] MEDS: ENOXAPARIN 40 MG/0.4 ML SQ SCH (08:50)
[2018-04-25] MEDS: OMEGA-3/FISH OIL CAPSULE PO SCH (08:50)
[2018-04-25] MEDS: PANTOPRAZOLE 40 MG IV IVPush SCH ×2 (08:50→18:46)
[2018-04-25] MEDS: ASCORBIC ACID 500 MG TABLET PO SCH (08:50)
[2018-04-25] MEDS: MULTIVITAMINS/MINERALS TABLET PO SCH (11:36)
[2018-04-25] MEDS: PIPERACILLIN/TAZO/PMX 3.375GM 50 ML IV SCH ×2 (13:46→18:27)
[2018-04-25 14:26] VITALS: BP 119/79
[2018-04-25 19:30] VITALS: BP 138/82
[2018-04-25] MEDS: TIZANIDINE 4MG TABLET PO SCH (21:00)
[2018-04-25] MEDS: SIMVASTATIN 20 MG TABLET PO SCH (22:18)
[2018-04-25] MEDS: CETIRIZINE 10 MG TABLET PO SCH (22:18)
[2018-04-25] MEDS: MONTELUKAST 10 MG TABLET PO SCH (22:18)
[2018-04-25] MEDS: PHENAZOPYRIDINE 200 MG TABLET PO PRN (22:18)
[2018-04-26] MEDS: GABAPENTIN 100 MG CAPSULE PO SCH (01:00)
[2018-04-26] MEDS: PIPERACILLIN/TAZO/PMX 3.375GM 50 ML IV SCH ×3 (01:00→14:11)
[2018-04-26] MEDS: DIAZEPAM 5 MG TABLET PO PRN (01:01)
[2018-04-26 02:01] VITALS: BP 133/88
[2018-04-26 06:55] VITALS: BP 139/93
[2018-04-26] MEDS: PANTOPRAZOLE 40 MG IV IVPush SCH (08:02)
[2018-04-26] MEDS: ASCORBIC ACID 500 MG TABLET PO SCH (08:59)
[2018-04-26] MEDS: LIOTHYRONINE 25 MCG TABLET PO SCH (08:59)
[2018-04-26] MEDS: ENOXAPARIN 40 MG/0.4 ML SQ SCH (09:00)
[2018-04-26] MEDS: OMEGA-3/FISH OIL CAPSULE PO SCH (09:00)
[2018-04-26] MEDS: CHOLECALCIFEROL 5,000u TAB PO SCH (09:00)
[2018-04-26] MEDS: DOXYCYCLINE 100MG CAP PO SCH ×2 (09:00→20:54)
[2018-04-26] MEDS ORDERED: CIPR500T87 PO (11:11)
[2018-04-26] MEDS ORDERED: DOXY100C2 PO (11:11)
[2018-04-26 12:25] VITALS: BP 138/81
[2018-04-26] MEDS: MULTIVITAMINS/MINERALS TABLET PO SCH (12:45)
[2018-04-26 13:34] LABS: MICROSCOPIC INDICATED
[2018-04-26 13:35] LABS: CULTURE INDICATED? YES
[2018-04-26 19:45] VITALS: BP 126/81
[2018-04-26] MEDS: PANTOPROZOLE 40MG TABLET PO SCH (20:53)
[2018-04-26] MEDS: SIMVASTATIN 20 MG TABLET PO SCH (20:53)
[2018-04-26] MEDS: MONTELUKAST 10 MG TABLET PO SCH (20:54)
[2018-04-26] MEDS: CETIRIZINE 10 MG TABLET PO SCH (20:54)
[2018-04-26] MEDS: CIPROFLOXACIN 500 MG TABLET PO SCH (20:54)
[2018-04-27] MEDS: GABAPENTIN 100 MG CAPSULE PO SCH (00:36)
[2018-04-27] MEDS: HYDROcodone/APAP 10/325 MG TABLET PO PRN (00:36)
[2018-04-27 01:58] VITALS: BP 128/85
[2018-04-27 06:35] VITALS: BP 138/84
[2018-04-27] MEDS: ENOXAPARIN 40 MG/0.4 ML SQ SCH (09:42)
[2018-04-27] MEDS: LIOTHYRONINE 25 MCG TABLET PO SCH (09:43)
[2018-04-27] MEDS: ASCORBIC ACID 500 MG TABLET PO SCH (09:44)
[2018-04-27] MEDS: CIPROFLOXACIN 500 MG TABLET PO SCH (09:44)
[2018-04-27] MEDS: DOXYCYCLINE 100MG CAP PO SCH (09:44)
[2018-04-27] MEDS: PANTOPROZOLE 40MG TABLET PO SCH (09:45)
[2018-04-27] MEDS: OMEGA-3/FISH OIL CAPSULE PO SCH (09:45)
[2018-04-27] MEDS: CHOLECALCIFEROL 5,000u TAB PO SCH (09:45)
[2018-04-27] MEDS: MULTIVITAMINS/MINERALS TABLET PO SCH (12:39)
[2018-04-27] MEDS ORDERED: HYDR-3307 PO (14:35)
== END 2018-04-27 14:59 | disposition home health service (06) | DRG 467 ==
LOC: 4NOR 11:43 → DCLOUNGE 04-27 14:16
PROVIDERS: ADMIT Orthopaedic Surgery; ATTEND Hospitalist
PROC: 0SPV0JZ Removal of Synthetic Substitute from Right Knee Joint, Tibial Surface, Open Approach (ICD-10-PCS; 2018-04-19)
PROC: 0SRV0J9 Replacement of Right Knee Joint, Tibial Surface with Synthetic Substitute, Cemented, Open Approach (ICD-10-PCS; 2018-04-19)
PROC: 0SPT0JZ Removal of Synthetic Substitute from Right Knee Joint, Femoral Surface, Open Approach (ICD-10-PCS; 2018-04-19)
PROC: 0SRT0J9 Replacement of Right Knee Joint, Femoral Surface with Synthetic Substitute, Cemented, Open Approach (ICD-10-PCS; 2018-04-19)
PROC: 0QQG0ZZ Repair Right Tibia, Open Approach (ICD-10-PCS; 2018-04-19)
PROC: 3E0T3BZ Introduction of Anesthetic Agent into Peripheral Nerves and Plexi, Percutaneous Approach (ICD-10-PCS; 2018-04-19)
PROC: 0SPC08Z Removal of Spacer from Right Knee Joint, Open Approach (ICD-10-PCS; principal; 2018-04-19 07:30)
PROC: 30233N1 Transfusion of Nonautologous Red Blood Cells into Peripheral Vein, Percutaneous Approach (ICD-10-PCS; 2018-04-22)
DX: T84.53XA Infection and inflammatory reaction due to internal right knee prosthesis, initial encounter (principal); S82.191A Other fracture of upper end of right tibia, initial encounter for closed fracture; D62 Acute posthemorrhagic anemia; N39.0 Urinary tract infection, site not specified; R78.81 Bacteremia; Z68.43 Body mass index [BMI] 50.0-59.9, adult; Y83.4 Other reconstructive surgery as the cause of abnormal reaction of the patient, or of later complication, without mention of misadventure at the time of the procedure; Y92.89 Other specified places as the place of occurrence of the external cause; B95.61 Methicillin susceptible Staphylococcus aureus infection as the cause of diseases classified elsewhere; B96.5 Pseudomonas (aeruginosa) (mallei) (pseudomallei) as the cause of diseases classified elsewhere; E03.9 Hypothyroidism, unspecified; E11.69 Type 2 diabetes mellitus with other specified complication; E21.3 Hyperparathyroidism, unspecified; E66.01 Morbid (severe) obesity due to excess calories; E78.5 Hyperlipidemia, unspecified; G47.30 Sleep apnea, unspecified; I10 Essential (primary) hypertension; J45.909 Unspecified asthma, uncomplicated; K57.30 Diverticulosis of large intestine without perforation or abscess without bleeding; K59.00 Constipation, unspecified; Z83.3 Family history of diabetes mellitus; Z86.14 Personal history of Methicillin resistant Staphylococcus aureus infection; Z87.891 Personal history of nicotine dependence; X58.XXXA Exposure to other specified factors, initial encounter; Y93.89 Activity, other specified; Y99.8 Other external cause status
CPT/HCPCS: 36415; 71045; 80053; 80202; 81001; 82272; 82607; 82728; 82746; 82962; 83036; 83540; 83550; 83970; 84100; 84439; 84443; 85014; 85018; 85025; 85651; 86140; 86850; 86900; 86923; 87015; 87070; 87075; 87077; 87086; 87102; 87106; 87116; 87176; 87186; 87205; 87206; 89051; 93005; C1713; G0378; J0171; J0690; J0713; J1100; J1170; J1650; J1885; J2185; J2543; J2704; J2795; J3010; J3370; Q0162; C1776; C9113; J0330; J1815; J2370; J7030; J7040; J7050; P9016

== ENCOUNTER 2018-04-29 18:53 | Emergency (ER) | payer OTHER ==
[~2018-04-29] VITALS: Ht 157.5 cm; Wt 135.0 kg
[~2018-04-29 18:53] MED LIST changes: +ATOR10TA9 PO; +CIPR500T87 PO; +DOXY100C2 PO; +ENOX40SY4 SQ; +NITR100C PO; +PHEN-418 PO; +PHEN95TA25 PO; +SULF1TAB24 PO
[2018-04-29 18:56] VITALS: BP 141/92
[2018-04-29] MEDS ORDERED: SODIUM CHLORIDE FLUSH 10ML SYR IVF ONE (20:30)
[2018-04-29 20:49] LABS: BASOPHILS # (AUTO) 0.07 x10^3/uL (0-0.1); BASOPHILS % (AUTO) 1 % (0-1); EOSINOPHILS # (AUTO) 0.14 x10^3/uL (0-0.4); EOSINOPHILS % (AUTO) 1 % (1-7); LYMPHOCYTES % (AUTO) 20 % (22-44); MD NO; MEAN CORPUSCULAR HEMOGLOBIN 28.7 pg (27.0-34.8); MEAN CORPUSCULAR HGB CONC 33.3 g/dL (32.4-35.8); MEAN CORPUSCULAR VOLUME 86.2 fL (80-100); MEAN PLATELET VOLUME 6.2 fL (7.4-10.4); MONOCYTES # (AUTO) 0.93 x10^3/uL (0.2-0.8); MONOCYTES % (AUTO) 8 % (2-9); NEUTROPHILS # (AUTO) 7.63 x10^3/uL (1.8-6.8); NEUTROPHILS % (AUTO) 70 % (42-75); PLATELET COUNT 462 x10^3/uL (130-400); RED BLOOD COUNT 3.62 x10^6/uL (3.82-5.3); RED CELL DISTRIBUTION WIDTH 15.5 % (9.6-15.2)
[2018-04-29 21:00] LABS: ALANINE AMINOTRANSFERASE 22 U/L (12-78); ALBUMIN 2.8 g/dL (3.4-5.0); ANION GAP 9 mmol/L (5-15); CALCIUM 10.1 mg/dL (8.5-10.1); CHLORIDE 109 mmol/L (98-107); CREATININE 0.77 mg/dL (0.55-1.02)
[2018-04-29 21:03] LABS: ALKALINE PHOSPHATASE 141 U/L (45-117); BILIRUBIN,TOTAL 0.4 mg/dL (0.2-1.0); TOTAL PROTEIN 6.2 g/dL (6.4-8.2)
[2018-04-29] MEDS ORDERED: HYDROcodone/APAP 5/325 TABLET PO STA (21:30)
[2018-04-29 21:46] LABS: MICROSCOPIC INDICATED
[2018-04-29] MEDS ORDERED: HYDROcodone/APAP 5/325 TABLET ONE (21:55)
[2018-04-29 21:57] LABS: CULTURE INDICATED? YES
[2018-04-29] MEDS ORDERED: NITROFURANTOIN (MACROBID) 100 MG CAPSULE ONE (22:07)
[2018-04-29] MEDS ORDERED: NITROFURANTOIN (MACROBID) 100 MG CAPSULE PO ONE (22:30)
== END 2018-04-29 23:07 | disposition home or self-care (01) ==
LOC: ED 19:25
DX: N30.01 Acute cystitis with hematuria (principal); J45.909 Unspecified asthma, uncomplicated; E11.9 Type 2 diabetes mellitus without complications; I10 Essential (primary) hypertension; E78.5 Hyperlipidemia, unspecified
CPT/HCPCS: 36415; 80053; 81001; 85025; 87040; 87086; 99284

== ENCOUNTER → 2018-10-03 | Outpatient (CLI) | payer OTHER ==
[~2018-10-03] MED LIST changes: +DOXY100T PO; -RIVA10TA PO; +RIVA10TA2 PO; -ROSU10TA PO; +ROSU10TA2 PO; +SENN-177 PO; -SENN1TAB8 PO
== END | disposition home or self-care (01) ==
LOC: STAR 10:07
PROVIDERS: ATTEND Surgery
DX: Z01.818 Encounter for other preprocedural examination (principal)
CPT/HCPCS: 93005

== ENCOUNTER 2018-10-10 09:03 | Day surgery (SDC) | payer OTHER ==
[~2018-10-10] VITALS: Ht 157.5 cm; Wt 138.9 kg
[2018-10-10] MEDS ORDERED: LACTATED RINGERS 1,000 ML IV SCH (09:42)
[2018-10-10 09:51] VITALS: BP 132/83
[2018-10-10] MEDS ORDERED: PROPOFOL 10 MG/ML, 20ML ONE (12:03)
[2018-10-10] MEDS ORDERED: LIDOCAINE 2% 100MG/5ML SYRINGE ONE (12:03)
[2018-10-10] MEDS ORDERED: SUCCINYLCHOLINE 20 MG/ML, 10ML ONE (12:03)
[2018-10-10] MEDS ORDERED: FENTANYL PF 100 MCG/2ML ONE ×2 (12:06→14:34)
[2018-10-10] MEDS ORDERED: MIDAZOLAM 1 MG/ML, 2ML ONE (12:06)
[2018-10-10] MEDS ORDERED: BUPIVACAINE/PF-EPI 0.5% 1:200K INFIL ONE (12:47)
[2018-10-10] MEDS ORDERED: BUPIVACAINE/PF-EPI 0.5% 1:200K ONE (14:13)
[2018-10-10] MEDS ORDERED: HYDROcodone/APAP 7.5-325MG/15ML UDC ONE (14:34)
[2018-10-10] MEDS: FENTANYL PF 100 MCG/2ML IV PRN ×2 (14:40→14:54)
[2018-10-10 14:54] LABS: 10MIN %DROP IOPTH 43 %; 5MIN %DROP IOPTH 41 %; IOPTH BASELINE 376 pg/mL; SAMPLE 5 %DROP IOPTH 45 %
[2018-10-10] MEDS ORDERED: FENTANYL PF 100 MCG/2ML IV PRN (15:00)
[2018-10-10] MEDS ORDERED: MIDAZOLAM 1 MG/ML, 2ML IV PRN (15:00)
[2018-10-10] MEDS ORDERED: LABETALOL 5MG/ML, 20ML IV PRN (15:00)
[2018-10-10] MEDS ORDERED: ONDANSETRON 2MG/ML, 2ML IVPush PRN (15:00)
[2018-10-10] MEDS ORDERED: HYDROcodone/APAP 7.5-325MG/15ML UDC PO PRN (15:00)
[2018-10-10] MEDS ORDERED: OXYcodone 5 MG/5 ML ORAL.SOL UDC PO PRN (15:00)
[2018-10-10] MEDS ORDERED: HYDROmorphone 1 MG/ML, 1ML IV PRN (15:00)
[2018-10-10] MEDS ORDERED: MEPERIDINE/PF 25MG/0.5ML IVPush PRN (15:00)
== END 2018-10-10 17:45 | disposition home or self-care (01) ==
LOC: OUT 09:03
PROVIDERS: ATTEND Surgery
DX: E21.0 Primary hyperparathyroidism (principal); E11.40 Type 2 diabetes mellitus with diabetic neuropathy, unspecified; J45.909 Unspecified asthma, uncomplicated; G89.4 Chronic pain syndrome; E78.00 Pure hypercholesterolemia, unspecified; I10 Essential (primary) hypertension; Z98.890 Other specified postprocedural states; Z88.8 Allergy status to other drugs, medicaments and biological substances; Z79.84 Long term (current) use of oral hypoglycemic drugs
CPT/HCPCS: 60500; 82962; 83970; 88305; C1760; J0330; J2250; J2704; J3010; J7120